=== PATIENT | female | born 1995 | race Caucasian/White ===

== ENCOUNTER 2017-11-23 21:00 | Emergency (ER) | payer OTHER ==
[2017-11-23 21:06] VITALS: BP 125/81; PULSE 96; RESP 20; TEMP 98.2
[2017-11-23] MEDS ORDERED: IBUPROFEN 600 MG STARTER PACK 4 TAB BTL PO STA (21:19)
--- NOTE | 2017-11-23 21:21 | ED ---
Lower Extremity Injury HPI - General Chief Complaint: Extremity Injury, Lower Stated Complaint: Foot injury Time Seen by Provider: 11/23/17 21:11 Source: patient, RN notes reviewed, old records reviewed Mode of arrival: wheelchair Limitations: no limitations - History of Present Illness Initial Comments: 22-year-old female presents return today with right foot pain. Patient reports he was roughhousing with her fianc and sprained her foot and ankle. She also complains of some pain shooting up to her knee. Patient reports she's had some pain with range of motion. This occurred at 5:00 tonight. Patient has been able to bear weight and walk on it. Patient has had no previous surgeries the foot or ankle. Patient denies any recent fever, chills, shortness of breath, chest pain, back pain, abdominal pain, nausea vomiting, numbness or tingling, dysuria or hematuria, constipation or diarrhea, headaches or visual changes, or any other current symptoms - Related Data Previous Rx's Medication Instructions Recorded RX: Ibuprofen 600 mg PO TID #20 tablet 11/23/17 Allergies Allergy/AdvReac Type Severity Reaction Status Date / Time amoxicillin Allergy Rash/Hives Verified 11/23/17 21:06 Review of Systems ROS Statement: Those systems with pertinent positive or pertinent negative responses have been documented in the HPI. ROS Other: All systems not noted in ROS Statement are negative. Past Medical History Past Medical History: No Reported History History of Any Multi-Drug Resistant Organisms: None Reported Past Surgical History: Cholecystectomy Past Psychological History: Anxiety, Bipolar, Depression Smoking Status: Current every day smoker Past Alcohol Use History: Occasional Past Drug Use History: Marijuana General Exam - General Exam Comments Initial Comments: This patient's a 22-year-old female. Alert and oriented. No acute distress. General: Well appearing, well nourished, in no distress. Oriented x 3, normal mood and affect . Ambulating without difficulty. Skin: Good turgor, no rash, unusual bruising or prominent lesions Hair: Normal texture and distribution. HEENT: Head: Normocephalic, atraumatic, no visible or palpable masses, depressions, or scaring. Eyes: Visual acuity intact, conjunctiva clear, sclera non-icteric, EOM intact, PERRL. Ears: EACs clear, TMs translucent & cone of light visualized. hearing intact. Nose: No external lesions, mucosa non-inflamed, septum and turbinates normal Mouth: Mucous membranes moist, no mucosal lesions. Teeth/Gums: No obvious caries or periodontal disease. No gingival inflammation or significant resorption. Pharynx: Mucosa non-inflamed, no tonsillar hypertrophy or exudate Neck: Supple, without lesions, bruits, or adenopathy, thyroid non-enlarged and non-tender Heart: No cardiomegaly or thrills; regular rate and rhythm, no murmur or gallop Lungs: Clear to auscultation and percussion Abdomen: Bowel sounds normal, no tenderness, organomegaly, masses, or hernia Extremities: Patient has pain with range of motion of the right ankle. Chest tender over the medial malleolus. No significant swelling or deformity noted. Normal sensation and pulse less than 2 seconds. Dorsalis pedis pulse and posterior pulses are palpable. Musculoskeletal: Normal gait and station. No misalignment, asymmetry, crepitation, defects, tenderness, masses, effusions, decreased range of motion, instability, atrophy or abnormal strength or tone in the head, neck, spine, ribs , pelvis or extremities. Neurologic: CN 2-12 normal. Sensation to pain, touch, and proprioception normal. DTRs normal in upper and lower extremities. No pathologic reflexes. Psychiatric: Oriented X3, intact recent and remote memory, judgment and insight , normal mood and affect. Limitations: no limitations Course Vital Signs 11/23/17 21:04 Temperature 98.2 F Pulse Rate 96 Respiratory 20 Rate Blood Pressure 125/81 O2 Sat by Pulse 98 Oximetry Procedures - Orthopedic Splinting/Casting Injury #1 Side: right Lower Extremity Injury Location: ankle Lower Extremity Immobilizer: Air[employer], El wrap Medical Decision Making - Medical Decision Making This is 22-year-old female to the right foot and ankle pain. She reports that she rolled it [place]. Patient x-rays of the foot and tib-fib are negative for any acute process. Patient given an El wrap and instructed with rest, ice, and elevate. Discussed return parameters. Motrin Tylenol for pain. Patient understood history plan will comply. Return parameters were discussed. Disposition Clinical Impression: Right ankle sprain, Right foot sprain Disposition: HOME SELF-CARE Condition: Good Instructions: Ankle Sprain (ED) Additional Instructions: Patient advised to rest, ice, and elevate extremity. Wear the El wrap and splint. Return to emergency department if any alarming signs or symptoms occur. Prescriptions: RX: Ibuprofen 600 mg PO TID #20 tablet Is patient prescribed a controlled substance at d/c from ED?: No Referrals: Mila Samuel MD [Primary Care Provider] - 1-2 days Time of Disposition: 22:04
--- NOTE | 2017-11-23 21:59 | XR ---
EXAMINATION TYPE: XR tibia fibula RT DATE OF EXAM: 11/23/2017 COMPARISON: None HISTORY: Pain TECHNIQUE: 2 view right tibia and fibula FINDINGS: Joint spaces are preserved. No acute fractures are evident. Soft tissues are normal. IMPRESSION: 1. Normal right tibia and fibula.
--- NOTE | 2017-11-23 21:59 | XR ---
EXAMINATION TYPE: XR foot complete RT DATE OF EXAM: 11/23/2017 COMPARISON: None HISTORY: Pain TECHNIQUE: Three-view right foot FINDINGS: Joint spaces are preserved. No acute fractures are evident. Soft tissues are normal. Follow -up exams can be performed 7-10 days from acute trauma for continued pain. IMPRESSION: 1. Normal three-view right foot.
== END 2017-11-23 22:18 | disposition home or self-care (01) ==
LOC: EC 21:00
DX: S93.401A Sprain of unspecified ligament of right ankle, initial encounter (principal); S93.601A Unspecified sprain of right foot, initial encounter; F17.200 Nicotine dependence, unspecified, uncomplicated; Z88.0 Allergy status to penicillin; X50.1XXA Overexertion from prolonged static or awkward postures, initial encounter; Y92.832 Beach as the place of occurrence of the external cause
CPT/HCPCS: 99284; 29515; 73590; 73630; L4350

== ENCOUNTER 2018-03-07 09:56 | Emergency (ER) | payer OTHER ==
[2018-03-07 10:02] VITALS: TEMP 98.2
--- NOTE | 2018-03-07 10:16 | ED ---
General Adult HPI - General Chief complaint: Abdominal Pain Stated complaint: rt sided pain Source: patient Mode of arrival: ambulatory Limitations: no limitations - History of Present Illness Initial comments: Dictation was produced using [employer] dictation software. please excuse any grammatical, word or spelling errors. Chief Complaint: 22-year-old female past medical history of depression presents with right-sided abdominal pain. History of Present Illness: The 22-year-old female without significant comorbidities presents with chief complaint of right-sided abdominal pain. Patient states she woke up with this pain. She reports that her pain is episodic and sharp to the right lower quadrant right flank area. She states it arises from her right flank area and radiates down to her groin. Patient denies any mitigating or exacerbating factors. Patient denies any history of kidney stones. Patient is status post cholecystectomy. Denies any vomiting however does have some nausea. Denies any changes in bowel habits. No fevers, chills or night sweats. Patient denies any history of appendectomy. Denies any vaginal bleeding, vaginal discharge. Denies his pain of her being in the periumbilical region. The ROS documented in this emergency department record has been reviewed and confirmed by me. Those systems with pertinent positive or negative responses have been documented in the HPI. All other systems are other negative and/or noncontributory. - Related Data Home Medications Medication Instructions Recorded Confirmed Cetirizine HCl [Zyrtec] 10 mg PO DAILY 03/07/18 03/07/18 FLUoxetine HCL [PROzac] 20 mg PO HS 03/07/18 03/07/18 Omeprazole [PriLOSEC] 20 mg PO DAILY 03/07/18 03/07/18 Sertraline HCl [Zoloft] 25 mg PO DAILY 03/07/18 03/07/18 Previous Rx's Medication Instructions Recorded Sulfamethox-Tmp 800-160Mg [Bactrim 1 tab PO Q12HR 5 Days #10 tab 03/07/18 DS 800-160 mg] Allergies Allergy/AdvReac Type Severity Reaction Status Date / Time amoxicillin Allergy Rash/Hives Verified 03/07/18 10:38 Penicillins Allergy Rash/Hives Verified 03/07/18 10:38 Review of Systems ROS Statement: Those systems with pertinent positive or pertinent negative responses have been documented in the HPI. ROS Other: All systems not noted in ROS Statement are negative. Past Medical History Past Medical History: No Reported History History of Any Multi-Drug Resistant Organisms: None Reported Past Surgical History: Cholecystectomy Past Psychological History: Anxiety, Bipolar, Depression Smoking Status: Current every day smoker Past Alcohol Use History: Occasional Past Drug Use History: Marijuana General Exam - General Exam Comments Initial Comments: PHYSICAL EXAM: General Impression: Alert and oriented x3, not in acute distress HEENT: Normocephalic atraumatic, extra-ocular movements intact, pupils equal and reactive to light bilaterally, mucous membranes moist. Cardiovascular: Heart regular rate and rhythm, S1&S2 audible, no murmurs, rubs or gallops Chest: Lungs clear to auscultation bilaterally, no rhonchi, no wheeze, no rales Abdomen: Bowel sounds present, abdomen soft, mild tenderness to palpation in the right lower quadrant., non-distended, no organomegaly Musculoskeletal: Pulses present and equal in all extremities, no peripheral edema Motor: Power 5/5 bilaterally, no focal deficits noted Neurological: CN II-XII grossly intact, no focal motor or sensory deficits noted Skin: Intact with no visualized rashes Psych: Normal affect and mood Limitations: no limitations Course Vital Signs 03/07/18 10:00 Temperature 98.2 F Pulse Rate 102 H Respiratory 20 Rate Blood Pressure 135/83 O2 Sat by Pulse 100 Oximetry Medical Decision Making - Medical Decision Making ED course: 82-year-old female with no CVA past medical history presents with chief complaint of right flank pain, right lower quadrant abdominal pain. Patient does not have any rebound tenderness. She is mildly tender to the right lower quadrant area. Vital signs upon arrival shows heart rate of 102, worse vital signs within normal limits.Lab return evaluation obtained. CBC, metabolic panel is unremarkable. Urinalysis shows findings to suggest urinary tract infection. The stone is also did differential however my opinion less likely. Patient given prescription for antibiotics. Told that she should follow-up with her primary care doctor. She is also given referral to urologist. Patient told to return to the emergency department with worsening pain or persistent symptoms. At that point patient should undergo workup for infected nephrolithiasis. Patient is understandable and agreeable to plan. Patient is well-appearing upon reevaluation. - Lab Data Result diagrams: 03/07/18 11:15 03/07/18 11:15 Lab Results 03/07/18 03/07/18 03/07/18 Range/Units 11:15 11:15 11:15 WBC 6.6 (3.8-10.6) k/uL RBC 4.38 (3.80-5.40) m/uL Hgb 13.5 (11.4-16.0) gm/dL Hct 40.2 (34.0-46.0) % MCV 92.0 (80.0-100.0) fL MCH 30.8 (25.0-35.0) pg MCHC 33.5 (31.0-37.0) g/dL RDW 13.1 (11.5-15.5) % Plt Count 263 (150-450) k/uL Neutrophils % 66 % Lymphocytes % 26 % Monocytes % 5 % Eosinophils % 2 % Basophils % 0 % Neutrophils # 4.3 (1.3-7.7) k/uL Lymphocytes # 1.7 (1.0-4.8) k/uL Monocytes # 0.3 (0-1.0) k/uL Eosinophils # 0.1 (0-0.7) k/uL Basophils # 0.0 (0-0.2) k/uL Sodium 140 (137-145) mmol/L Potassium 4.4 (3.5-5.1) mmol/L Chloride 108 H (98-107) mmol/L Carbon Dioxide 23 (22-30) mmol/L Anion Gap 9 mmol/L BUN 17 (7-17) mg/dL Creatinine 0.63 (0.52-1.04) mg/dL Est GFR (CKD-EPI)AfAm >90 (>60 ml/min/1.73 sqM) Est GFR (CKD-EPI)NonAf >90 (>60 ml/min/1.73 sqM) Glucose 87 (74-99) mg/dL Calcium 9.2 (8.4-10.2) mg/dL Total Bilirubin 0.5 (0.2-1.3) mg/dL AST 28 (14-36) U/L ALT 48 (9-52) U/L Alkaline Phosphatase 57 (38-126) U/L Total Protein 7.0 (6.3-8.2) g/dL Albumin 3.9 (3.5-5.0) g/dL Lipase 110 (23-300) U/L Urine Color Urine Appearance (Clear) Urine pH (5.0-8.0) Ur Specific [place] (1.001-1.035) Urine Protein (Negative) Urine Glucose (UA) (Negative) Urine Ketones (Negative) Urine Blood (Negative) Urine Nitrite (Negative) Urine Bilirubin (Negative) Urine Urobilinogen (<2.0) mg/dL Ur Leukocyte Esterase (Negative) Urine RBC (0-5) /hpf Urine WBC (0-5) /hpf Ur Squamous Epith Cells (0-4) /hpf Urine Bacteria (None) /hpf Urine Mucus (None) /hpf Urine HCG, Qual Not Detected (Not Detectd) 03/07/18 Range/Units 11:15 WBC (3.8-10.6) k/uL RBC (3.80-5.40) m/uL Hgb (11.4-16.0) gm/dL Hct (34.0-46.0) % MCV (80.0-100.0) fL MCH (25.0-35.0) pg MCHC (31.0-37.0) g/dL RDW (11.5-15.5) % Plt Count (150-450) k/uL Neutrophils % % Lymphocytes % % Monocytes % % Eosinophils % % Basophils % % Neutrophils # (1.3-7.7) k/uL Lymphocytes # (1.0-4.8) k/uL Monocytes # (0-1.0) k/uL Eosinophils # (0-0.7) k/uL Basophils # (0-0.2) k/uL Sodium (137-145) mmol/L Potassium (3.5-5.1) mmol/L Chloride (98-107) mmol/L Carbon Dioxide (22-30) mmol/L Anion Gap mmol/L BUN (7-17) mg/dL Creatinine (0.52-1.04) mg/dL Est GFR (CKD-EPI)AfAm (>60 ml/min/1.73 sqM) Est GFR (CKD-EPI)NonAf (>60 ml/min/1.73 sqM) Glucose (74-99) mg/dL Calcium (8.4-10.2) mg/dL Total Bilirubin (0.2-1.3) mg/dL AST (14-36) U/L ALT (9-52) U/L Alkaline Phosphatase (38-126) U/L Total Protein (6.3-8.2) g/dL Albumin (3.5-5.0) g/dL Lipase (23-300) U/L Urine Color Yellow Urine Appearance Cloudy H (Clear) Urine pH 6.5 (5.0-8.0) Ur Specific [place] 1.014 (1.001-1.035) Urine Protein Negative (Negative) Urine Glucose (UA) Negative (Negative) Urine Ketones Negative (Negative) Urine Blood Moderate H (Negative) Urine Nitrite Positive H (Negative) Urine Bilirubin Negative (Negative) Urine Urobilinogen <2.0 (<2.0) mg/dL Ur Leukocyte Esterase Moderate H (Negative) Urine RBC 99 H (0-5) /hpf Urine WBC 10 H (0-5) /hpf Ur Squamous Epith Cells 12 H (0-4) /hpf Urine Bacteria Occasional H (None) /hpf Urine Mucus Rare H (None) /hpf Urine HCG, Qual (Not Detectd) Disposition Clinical Impression: UTI (urinary tract infection) Disposition: HOME SELF-CARE Condition: Good Instructions: Urinary Tract Infection in Women (ED) Prescriptions: Sulfamethox-Tmp 800-160Mg [Bactrim DS 800-160 mg] 1 tab PO Q12HR 5 Days #10 tab Is patient prescribed a controlled substance at d/c from ED?: No Referrals: Mila Samuel MD [Primary Care Provider] - 1-2 days Justino Good MD [STAFF PHYSICIAN] - 1-2 days Time of Disposition: 12:34
[2018-03-07 11:33] LABS: Basophils % (A) 0 %; Eosinophils # (A) 0.1 k/uL (0-0.7); Eosinophils % (A) 2 %; HCT 40.2 % (34.0-46.0); HGB 13.5 gm/dL (11.4-16.0); Lymphocytes # (A) 1.7 k/uL (1.0-4.8); Lymphocytes % (A) 26 %; MCH 30.8 pg (25.0-35.0); MCHC 33.5 g/dL (31.0-37.0); Mean Platelet Volume 7.9; Monocytes # (A) 0.3 k/uL (0-1.0); Monocytes % (A) 5 %; Neutrophils # (A) 4.3 k/uL (1.3-7.7); Neutrophils % (A) 66 %; Platelet Count 263 k/uL (150-450); RBC 4.38 m/uL (3.80-5.40); RDW 13.1 % (11.5-15.5); WBC 6.6 k/uL (3.8-10.6)
[2018-03-07 11:42] LABS: ALT 48 U/L (9-52); AST 28 U/L (14-36); Albumin 3.9 g/dL (3.5-5.0); Alkaline Phosphatase 57 U/L (38-126); Anion Gap 9 mmol/L; Blood Urea Nitrogen 17 mg/dL (7-17); Calcium 9.2 mg/dL (8.4-10.2); Carbon Dioxide 23 mmol/L (22-30); Chloride 108 mmol/L (98-107); Glucose 87 mg/dL (74-99); Lipase 110 U/L (23-300); Potassium 4.4 mmol/L (3.5-5.1); Sodium 140 mmol/L (137-145); Total Bilirubin 0.5 mg/dL (0.2-1.3)
[2018-03-07 12:16] LABS: Appearance,Urine Cloudy (Clear); Bacteria,Urine Occasional /hpf; Bilirubin,Urine Negative (Negative); Blood,Urine Moderate (Negative); Color,Urine Yellow; Glucose,Urine (UA) Negative (Negative); Ketones,Urine Negative (Negative); Leukocyte Esterase,Urine Moderate (Negative); Mucus,Urine Rare /hpf; Nitrite,Urine Positive (Negative); PH, Urine 6.5 (5.0-8.0); Protein,Urine Negative (Negative); RBC,Urine 99 /hpf (0-5); Specific Gravity,Urine 1.014 (1.001-1.035); Squamous Epithelial Cell,Urine 12 /hpf (0-4); Urobilinogen,Urine <2.0 mg/dL (<2.0); WBC,Urine 10 /hpf (0-5)
[2018-03-07 13:28] VITALS: BP 115/77; PULSE 75; RESP 18
== END 2018-03-07 13:29 | disposition home or self-care (01) ==
LOC: EC 09:56
DX: N39.0 Urinary tract infection, site not specified (principal); R10.31 Right lower quadrant pain; F31.9 Bipolar disorder, unspecified; F41.9 Anxiety disorder, unspecified; F17.200 Nicotine dependence, unspecified, uncomplicated; Z79.899 Other long term (current) drug therapy; Z88.0 Allergy status to penicillin; Z90.49 Acquired absence of other specified parts of digestive tract
CPT/HCPCS: 36415; 80053; 81001; 81025; 83690; 85025; 99284

== ENCOUNTER 2019-12-16 11:20 | Emergency (ER) | payer OTHER ==
[2019-12-16 11:33] VITALS: BP 134/88; PULSE 85; RESP 18; TEMP 98
--- NOTE | 2019-12-16 11:52 | ED ---
Recheck HPI - General Chief Complaint: Recheck/Abnormal Lab/Rx Stated Complaint: needs work note Time Seen by Provider: 12/16/19 11:34 Source: patient, RN notes reviewed Mode of arrival: ambulatory Limitations: no limitations - History of Present Illness Initial Comments: 24-year-old female presents emergency Department requesting work no. Patient states she brought her daughter in 3 days ago was diagnosed with swimmer's itch. Patient missed work and told her work why and they are Requesting her to have a work note stating that she is clear to return to work. Patient denies any symptoms. Patient denies any complaints. Patient states SYMPTOMS - Related Data Home Medications Medication Instructions Recorded Confirmed Cetirizine HCl [Zyrtec] 10 mg PO DAILY 03/07/18 03/07/18 FLUoxetine HCL [PROzac] 20 mg PO HS 03/07/18 03/07/18 Omeprazole [PriLOSEC] 20 mg PO DAILY 03/07/18 03/07/18 Sertraline HCl [Zoloft] 25 mg PO DAILY 03/07/18 03/07/18 Previous Rx's Medication Instructions Recorded Sulfamethox-Tmp 800-160Mg [Bactrim 1 tab PO Q12HR 5 Days #10 tab 03/07/18 DS 800-160 mg] Allergies Allergy/AdvReac Type Severity Reaction Status Date / Time amoxicillin Allergy Rash/Hives Verified 03/07/18 10:38 Penicillins Allergy Rash/Hives Verified 03/07/18 10:38 Review of Systems ROS Statement: Those systems with pertinent positive or pertinent negative responses have been documented in the HPI. ROS Other: All systems not noted in ROS Statement are negative. Past Medical History Past Medical History: No Reported History History of Any Multi-Drug Resistant Organisms: None Reported Past Surgical History: Cholecystectomy Past Psychological History: Anxiety, Bipolar, Depression Smoking Status: Current every day smoker Past Alcohol Use History: Occasional Past Drug Use History: Marijuana General Exam Limitations: no limitations General appearance: alert, in no apparent distress Head exam: Present: atraumatic, normocephalic, normal inspection Eye exam: Present: normal appearance, PERRL, EOMI. Absent: scleral icterus, conjunctival injection, periorbital swelling ENT exam: Present: normal exam, normal oropharynx, mucous membranes moist Neck exam: Present: normal inspection, full ROM. Absent: tenderness, meningismus, lymphadenopathy Respiratory exam: Present: normal lung sounds bilaterally. Absent: respiratory distress, wheezes, rales, rhonchi, stridor Cardiovascular Exam: Present: regular rate, normal rhythm, normal heart sounds. Absent: systolic murmur, diastolic murmur, rubs, gallop, clicks Skin exam: Present: warm, dry, intact, normal color. Absent: rash Course Vital Signs 12/16/19 11:27 Temperature 98.0 F Pulse Rate 85 Respiratory 18 Rate Blood Pressure 134/88 O2 Sat by Pulse 97 Oximetry Medical Decision Making - Medical Decision Making Patient has no specific complaints asymptomatic. Patient will be given work no return parameters were discussed. Disposition Clinical Impression: Regular check-up Disposition: HOME SELF-CARE Condition: Stable Additional Instructions: Please return to the Emergency Department if symptoms worsen or any other con cerns. Is patient prescribed a controlled substance at d/c from ED?: No Referrals: Mila Samuel MD [Primary Care Provider] - 1-2 days Time of Disposition: 11:52
== END 2019-12-16 11:56 | disposition home or self-care (01) ==
LOC: EC 11:20
DX: Z00.00 Encounter for general adult medical examination without abnormal findings (principal); F17.200 Nicotine dependence, unspecified, uncomplicated; F41.9 Anxiety disorder, unspecified; F31.9 Bipolar disorder, unspecified; Z79.899 Other long term (current) drug therapy; Z90.49 Acquired absence of other specified parts of digestive tract; Z88.0 Allergy status to penicillin; Z87.2 Personal history of diseases of the skin and subcutaneous tissue
CPT/HCPCS: 99283

== ENCOUNTER 2020-01-03 23:12 | Emergency (ER) | payer OTHER ==
[2020-01-03] MEDS ORDERED: ACETAMINOPHEN TAB 500 MG TAB PO STA (23:29)
[2020-01-03] MEDS ORDERED: SODIUM CHLORIDE 0.9% 1,000 ML IV SCH (23:30)
--- NOTE | 2020-01-03 23:41 | ED ---
Fever HPI - General Chief Complaint: Fever Stated Complaint: Fever, chills Time Seen by Provider: 01/03/20 23:29 Source: patient Mode of arrival: ambulatory - History of Present Illness Initial Comments: Dee Dee is a relatively healthy 24-year-old female presents the ER today for evaluation of fever and not feeling well. Patient reports that her symptoms started 3-4 days ago with ear pain followed by a nonproductive cough runny stuffy nose. Shortness of breath or chest pain. She reports that since that time she's developed some abdominal pain more prominent on the left than the right, no lower urinary tract symptoms. No change in bowel or bladder habits. She states that she's had a fever throughout the day today. Asians does report recent socializing and travel within the state and states that she has not been wearing a mask. - Related Data Home Medications Medication Instructions Recorded Confirmed Cetirizine HCl [Zyrtec] 10 mg PO DAILY 03/07/18 03/07/18 FLUoxetine HCL [PROzac] 20 mg PO HS 03/07/18 03/07/18 Omeprazole [PriLOSEC] 20 mg PO DAILY 03/07/18 03/07/18 Sertraline HCl [Zoloft] 25 mg PO DAILY 03/07/18 03/07/18 Previous Rx's Medication Instructions Recorded Sulfamethox-Tmp 800-160Mg [Bactrim 1 tab PO Q12HR 5 Days #10 tab 03/07/18 DS 800-160 mg] Cephalexin [Keflex] 500 mg PO Q6HR 3 Days #12 cap 01/04/20 Allergies Allergy/AdvReac Type Severity Reaction Status Date / Time amoxicillin Allergy Rash/Hives Verified 01/03/20 23:27 Penicillins Allergy Rash/Hives Verified 01/03/20 23:27 Review of Systems ROS Statement: Those systems with pertinent positive or pertinent negative responses have been documented in the HPI. ROS Other: All systems not noted in ROS Statement are negative. Past Medical History Past Medical History: No Reported History History of Any Multi-Drug Resistant Organisms: None Reported Past Surgical History: Cholecystectomy Past Psychological History: Anxiety, Bipolar, Depression Smoking Status: Current every day smoker Past Alcohol Use History: Occasional Past Drug Use History: Marijuana General Exam - General Exam Comments Initial Comments: Physical Exam GENERAL: Ill appearing, febrile, tachycardic HENT: Normocephalic, Atraumatic. TM occluded by wax bilaterally EYES: PERRL, EOMI PULMONARY: Unlabored respirations. CARDIOVASCULAR: Tachycardic, regular ABDOMEN: Soft and nontender with normal bowel sounds. SKIN: Skin is clear with no lesions or rashes and otherwise unremarkable. : Deferred NEUROLOGIC: Patient is alert and oriented x3. Moving all extremities spontaneously MUSCULOSKELETAL: Normal extremities with adequate strength and full range of motion. No lower extremity swelling or edema. No calf tenderness. PSYCHIATRIC: Normal psychiatric evaluation. Course Vital Signs 01/03/20 01/03/20 01/03/20 23:21 23:35 23:50 Temperature 103 F H 102.3 F H 99.9 F H Pulse Rate 131 H 131 H 123 H Respiratory 20 18 14 Rate Blood Pressure 137/84 116/68 117/69 O2 Sat by Pulse 100 100 100 Oximetry 01/04/20 01/04/20 01/04/20 00:05 01:23 02:06 Temperature 102.0 F H 99.8 F H 99.1 F Pulse Rate 122 H 114 H 99 Respiratory 16 16 16 Rate Blood Pressure 129/82 114/64 127/72 O2 Sat by Pulse 100 98 99 Oximetry Medical Decision Making - Medical Decision Making She was seen and evaluated history is obtained from patient Patient has URI-type symptoms, fatigue, body aches, fever Septic workup was initiated There is concern for COVID 19 therefore CRP and ferritin were ordered The patient will be swabbed for COVID 19 Patient received antipyretics and IV fluids, her fever resolved her tachycardia resolved her he was noted to be 99 oxygen saturation remained in the 90s on room air, chest x-ray was clear Labs were concerning for muscle urinary tract infection patient was treated with Rocephin and will be discharged home with Keflex Patient reported feeling better after IV fluids and antipyretics. Patient is discharged home with 14 precautions for possible COVID 19 Return parameters were discussed patient was discharged home in stable condition - Lab Data Result diagrams: 01/03/20 23:52 01/03/20 23:52 Lab Results 01/03/20 01/03/20 01/03/20 Range/Units 23:52 23:52 23:52 WBC 11.7 H (3.8-10.6) k/uL RBC 5.13 (3.80-5.40) m/uL Hgb 15.3 (11.4-16.0) gm/dL Hct 47.7 H (34.0-46.0) % MCV 92.9 (80.0-100.0) fL MCH 29.9 (25.0-35.0) pg MCHC 32.1 (31.0-37.0) g/dL RDW 12.4 (11.5-15.5) % Plt Count 234 (150-450) k/uL Neutrophils % 93 % Lymphocytes % 5 % Monocytes % 2 % Eosinophils % 0 % Basophils % 0 % Neutrophils # 10.9 H (1.3-7.7) k/uL Lymphocytes # 0.5 L (1.0-4.8) k/uL Monocytes # 0.2 (0-1.0) k/uL Eosinophils # 0.0 (0-0.7) k/uL Basophils # 0.0 (0-0.2) k/uL PT 9.3 (9.0-12.0) sec INR 0.9 (<1.2) APTT 22.3 (22.0-30.0) sec Sodium 138 (137-145) mmol/L Potassium 4.3 (3.5-5.1) mmol/L Chloride 104 (98-107) mmol/L Carbon Dioxide 23 (22-30) mmol/L Anion Gap 11 mmol/L BUN 13 (7-17) mg/dL Creatinine 0.79 (0.52-1.04) mg/dL Est GFR (CKD-EPI)AfAm >90 (>60 ml/min/1.73 sqM) Est GFR (CKD-EPI)NonAf >90 (>60 ml/min/1.73 sqM) Glucose 126 H (74-99) mg/dL Plasma Lactic Acid Chris (0.7-2.0) mmol/L Calcium 9.3 (8.4-10.2) mg/dL Total Bilirubin 1.0 (0.2-1.3) mg/dL AST 57 H (14-36) U/L ALT 33 (4-34) U/L Alkaline Phosphatase 70 (38-126) U/L C-Reactive Protein 16.8 H (<10.0) mg/L Total Protein 7.9 (6.3-8.2) g/dL Albumin 4.7 (3.5-5.0) g/dL Urine Color Urine Appearance (Clear) Urine pH (5.0-8.0) Ur Specific Niles (1.001-1.035) Urine Protein (Negative) Urine Glucose (UA) (Negative) Urine Ketones (Negative) Urine Blood (Negative) Urine Nitrite (Negative) Urine Bilirubin (Negative) Urine Urobilinogen (<2.0) mg/dL Ur Leukocyte Esterase (Negative) Urine RBC (0-5) /hpf Urine WBC (0-5) /hpf Ur Squamous Epith Cells (0-4) /hpf Urine Bacteria (None) /hpf Urine Mucus (None) /hpf Urine HCG, Qual (Not Detectd) 01/03/20 01/04/20 01/04/20 Range/Units 23:52 01:30 01:30 WBC (3.8-10.6) k/uL RBC (3.80-5.40) m/uL Hgb (11.4-16.0) gm/dL Hct (34.0-46.0) % MCV (80.0-100.0) fL MCH (25.0-35.0) pg MCHC (31.0-37.0) g/dL RDW (11.5-15.5) % Plt Count (150-450) k/uL Neutrophils % % Lymphocytes % % Monocytes % % Eosinophils % % Basophils % % Neutrophils # (1.3-7.7) k/uL Lymphocytes # (1.0-4.8) k/uL Monocytes # (0-1.0) k/uL Eosinophils # (0-0.7) k/uL Basophils # (0-0.2) k/uL PT (9.0-12.0) sec INR (<1.2) APTT (22.0-30.0) sec Sodium (137-145) mmol/L Potassium (3.5-5.1) mmol/L Chloride (98-107) mmol/L Carbon Dioxide (22-30) mmol/L Anion Gap mmol/L BUN (7-17) mg/dL Creatinine (0.52-1.04) mg/dL Est GFR (CKD-EPI)AfAm (>60 ml/min/1.73 sqM) Est GFR (CKD-EPI)NonAf (>60 ml/min/1.73 sqM) Glucose (74-99) mg/dL Plasma Lactic Acid Chris 2.5 H* (0.7-2.0) mmol/L Calcium (8.4-10.2) mg/dL Total Bilirubin (0.2-1.3) mg/dL AST (14-36) U/L ALT (4-34) U/L Alkaline Phosphatase (38-126) U/L C-Reactive Protein (<10.0) mg/L Total Protein (6.3-8.2) g/dL Albumin (3.5-5.0) g/dL Urine Color Light Yellow Urine Appearance Clear (Clear) Urine pH 6.5 (5.0-8.0) Ur Specific Niles 1.006 (1.001-1.035) Urine Protein Negative (Negative) Urine Glucose (UA) Negative (Negative) Urine Ketones Negative (Negative) Urine Blood Negative (Negative) Urine Nitrite Positive H (Negative) Urine Bilirubin Negative (Negative) Urine Urobilinogen <2.0 (<2.0) mg/dL Ur Leukocyte Esterase Small H (Negative) Urine RBC 1 (0-5) /hpf Urine WBC 14 H (0-5) /hpf Ur Squamous Epith Cells 1 (0-4) /hpf Urine Bacteria Moderate H (None) /hpf Urine Mucus Rare H (None) /hpf Urine HCG, Qual Not Detected (Not Detectd) Disposition Clinical Impression: UTI (urinary tract infection) Disposition: HOME SELF-CARE Condition: Stable Additional Instructions: As we discussed it does appear to have a very early urinary tract infection however her labs are also concerning for possible COVID 19. You were swabbed for COVID 19 today, this test should result in 3-5 days, until that time he need to act as though you are COVID 19 positive, quarantine in your home she will have to go out wear a mask and frequently wash her hands Turned the ER for any worsening condition he cannot keep her fever under control he feel short of breath or any new or concerning symptoms Prescriptions: Cephalexin [Keflex] 500 mg PO Q6HR 3 Days #12 cap Is patient prescribed a controlled substance at d/c from ED?: No Referrals: Mila Samuel MD [Primary Care Provider] - 1-2 days
[2020-01-03] MEDS: SODIUM CHLORIDE 0.9% 500 ML 500 ML IV SCH (23:46)
[2020-01-04 00:18] LABS: Basophils % (A) 0 %; Eosinophils % (A) 0 %; HCT 47.7 % (34.0-46.0); HGB 15.3 gm/dL (11.4-16.0); Lymphocytes # (A) 0.5 k/uL (1.0-4.8); Lymphocytes % (A) 5 %; MCH 29.9 pg (25.0-35.0); MCHC 32.1 g/dL (31.0-37.0); MCV 92.9 fL (80.0-100.0); Mean Platelet Volume 8.4; Monocytes # (A) 0.2 k/uL (0-1.0); Monocytes % (A) 2 %; Neutrophils # (A) 10.9 k/uL (1.3-7.7); Neutrophils % (A) 93 %; Platelet Count 234 k/uL (150-450); RBC 5.13 m/uL (3.80-5.40); RDW 12.4 % (11.5-15.5); WBC 11.7 k/uL (3.8-10.6)
[2020-01-04 00:23] LABS: INR 0.9 (<1.2); Partial Thromboplastin Time 22.3 sec (22.0-30.0); Prothrombin Time 9.3 sec (9.0-12.0)
[2020-01-04 00:25] VITALS: RESP 16
[2020-01-04] MEDS ORDERED: IBUPROFEN 600 MG TAB PO STA (00:40)
[2020-01-04 00:47] LABS: ALT 33 U/L (4-34); African American GFR (CKD) >90 (>60 ml/min/1.73 sqM); Albumin 4.7 g/dL (3.5-5.0); Anion Gap 11 mmol/L; Blood Urea Nitrogen 13 mg/dL (7-17); C Reactive Protein 16.8 mg/L (<10.0); Calcium 9.3 mg/dL (8.4-10.2); Carbon Dioxide 23 mmol/L (22-30); Chloride 104 mmol/L (98-107); Glucose 126 mg/dL (74-99); Non-African American GFR(CKD) >90 (>60 ml/min/1.73 sqM); Sodium 138 mmol/L (137-145); Total Protein 7.9 g/dL (6.3-8.2)
[2020-01-04 00:57] LABS: AST 57 U/L (14-36); Alkaline Phosphatase 70 U/L (38-126); Potassium 4.3 mmol/L (3.5-5.1)
--- NOTE | 2020-01-04 01:27 | XR ---
EXAMINATION TYPE: XR chest 1V DATE OF EXAM: 01/04/2020 COMPARISON: NONE HISTORY: Fever TECHNIQUE: Single view FINDINGS: Heart size is normal. There is no heart failure. There is no definite pleural effusion. Exa m is limited by patient's size. Bony thorax appears intact IMPRESSION: No active cardiopulmonary disease. Limited exam.
[2020-01-04 01:38] LABS: Appearance,Urine Clear (Clear); Bacteria,Urine Moderate /hpf; Bilirubin,Urine Negative (Negative); Blood,Urine Negative (Negative); Color,Urine Light Yellow; Glucose,Urine (UA) Negative (Negative); Ketones,Urine Negative (Negative); Leukocyte Esterase,Urine Small (Negative); Mucus,Urine Rare /hpf; Nitrite,Urine Positive (Negative); PH, Urine 6.5 (5.0-8.0); Protein,Urine Negative (Negative); RBC,Urine 1 /hpf (0-5); Specific Gravity,Urine 1.006 (1.001-1.035); Squamous Epithelial Cell,Urine 1 /hpf (0-4); Urobilinogen,Urine <2.0 mg/dL (<2.0); WBC,Urine 14 /hpf (0-5)
[2020-01-04] MEDS ORDERED: cefTRIAXone IN SWFI 1,000 MG/10 ML SYRINGE IVP STA (01:43)
[2020-01-04] MEDS ORDERED: CEPHALEXIN 500MG STARTER PACK 4 CAP BTL PO STA (02:08)
[2020-01-04 02:09] VITALS: BP 127/72; PULSE 99; TEMP 99.1
[2020-01-04 10:06] LABS: Ferritin 112.1 ng/mL (10.0-291.0)
== END 2020-01-04 02:25 | disposition home or self-care (01) ==
LOC: EC 23:12
DX: N39.0 Urinary tract infection, site not specified (principal); R53.83 Other fatigue; F41.9 Anxiety disorder, unspecified; F31.9 Bipolar disorder, unspecified; F17.200 Nicotine dependence, unspecified, uncomplicated; Z79.899 Other long term (current) drug therapy; Z88.0 Allergy status to penicillin; Z90.49 Acquired absence of other specified parts of digestive tract; Z20.828 Contact with and (suspected) exposure to other viral communicable diseases
CPT/HCPCS: 36415 ×2; 93005; 80053; 82728; 83605; 85025; 85610; 85730; 86140; 81001; 81025; 87040; 87086; 71045; 99283; 96374; 96361 ×2; U0003; J0696

== ENCOUNTER 2020-03-27 21:34 | Emergency (ER) | payer BC, OTHER ==
[2020-03-27 22:31] LABS: Basophils # (A) 0.1 k/uL (0-0.2); Basophils % (A) 1 %; Eosinophils # (A) 0.2 k/uL (0-0.7); Eosinophils % (A) 2 %; HCT 41.3 % (34.0-46.0); HGB 14.2 gm/dL (11.4-16.0); Lymphocytes # (A) 2.2 k/uL (1.0-4.8); Lymphocytes % (A) 23 %; MCH 32.2 pg (25.0-35.0); MCHC 34.4 g/dL (31.0-37.0); MCV 93.8 fL (80.0-100.0); Monocytes # (A) 0.3 k/uL (0-1.0); Monocytes % (A) 3 %; Neutrophils # (A) 6.8 k/uL (1.3-7.7); Neutrophils % (A) 71 %; Platelet Count 262 k/uL (150-450); RBC 4.41 m/uL (3.80-5.40); RDW 12.3 % (11.5-15.5); WBC 9.7 k/uL (3.8-10.6)
[2020-03-27 22:34] LABS: Appearance,Urine Clear (Clear); Bacteria,Urine Rare /hpf; Bilirubin,Urine Negative (Negative); Blood,Urine Negative (Negative); Color,Urine Yellow; Glucose,Urine (UA) Negative (Negative); Ketones,Urine 1+ (Negative); Leukocyte Esterase,Urine Small (Negative); Mucus,Urine Rare /hpf; Nitrite,Urine Negative (Negative); Protein,Urine Negative (Negative); RBC,Urine <1 /hpf (0-5); Specific Gravity,Urine 1.012 (1.001-1.035); Squamous Epithelial Cell,Urine 2 /hpf (0-4); Urobilinogen,Urine <2.0 mg/dL (<2.0); WBC,Urine 7 /hpf (0-5)
[2020-03-27 22:42] LABS: ALT 58 U/L (4-34); AST 64 U/L (14-36); African American GFR (CKD) >90 (>60 ml/min/1.73 sqM); Albumin 4.3 g/dL (3.5-5.0); Alkaline Phosphatase 51 U/L (38-126); Anion Gap 7 mmol/L; Blood Urea Nitrogen 12 mg/dL (7-17); Calcium 9.7 mg/dL (8.4-10.2); Carbon Dioxide 24 mmol/L (22-30); Chloride 105 mmol/L (98-107); Glucose 87 mg/dL (74-99); Lipase 89 U/L (23-300); Non-African American GFR(CKD) >90 (>60 ml/min/1.73 sqM); Potassium 4.1 mmol/L (3.5-5.1); Sodium 136 mmol/L (137-145); Total Bilirubin 0.9 mg/dL (0.2-1.3); Total Protein 7.5 g/dL (6.3-8.2)
--- NOTE | 2020-03-27 23:37 | US ---
EXAMINATION TYPE: Transabdominal DATE OF EXAM: 03/27/2020 11:23 PM COMPARISON: NONE CLINICAL HISTORY: abdominal pain. Pelvic pain x 1 day EXAM PERFORMED: Transabdominal (TA) EXAM MEASUREMENTS: GESTATIONAL AGE / DATING Physician Established: Not established yet Dates by LMP: Patient unsure Dates by First Scan: This is 1st scan Dates by Current Scan for: (7 weeks/1 days) EDC: 11/12/2020 MATERNAL ANATOMY Uterus: 9.6 x 5.0 x 6.7cm, anteverted Right Ovary: 3.5 x 2.1 x 2.5cm Left Ovary: 2.2 x 0.8 x 1.7cm Post CDS / Adnexa: wnl Presence of free fluid: no Presence of corpus luteal cyst: right ovary: 1.9 x 1.6 x 2.0cm Presence of subchorionic bleed: no GESTATION / SURVEY CRL: 1.0cm (7 weeks/1 days) Yolk Sac (normal less than 6mm): 3.7mm Heart Rate: 138 bpm Rhythm: Normal IUP: Viable IUP Viable single IUP IMPRESSION: The ultrasound gestational age is 7 weeks and 1 day. The GALINA is 11/12/2020. No complicating process se en.
[2020-03-27 23:54] LABS: HCG,Quantitative Serum 77728.7 mIU/mL
[2020-03-27 23:59] VITALS: BP 113/75; PULSE 86; RESP 16; TEMP 97.9
[2020-03-28] MEDS ORDERED: CEPHALEXIN 500 MG CAP PO STA (00:06)
--- NOTE | 2020-03-28 00:07 | ED ---
General Adult HPI - General Chief complaint: Abdominal Pain Stated complaint: Abd Pain/NVD (9 weeks prg) Time Seen by Provider: 03/27/20 21:53 Source: patient, RN notes reviewed, old records reviewed Mode of arrival: ambulatory Limitations: no limitations - History of Present Illness Initial comments: 24 year old female patient to ED for very mild lower abdominal discomfort. Patient is a who is approximately 9 weeks . She reports it feels li ke some general gas pain. She had some nausea, one episode of emesis last night. She also reports some mild diarrhea. She denies any vaginal bleeding. Denies any other complaints. Systemic: Pt denies fatigue, fever/chills, rash. Pt denies weakness, night sweats, weight loss. Neuro: Pt denies headache, visual disturbances, syncope or pre-syncope. HEENT: Pt denies ocular discharge or irritation, otalgia, rhinorrhea, pharyngitis or notable lymphadenopathy. Cardiopulmonary: Pt denies chest pain, SOB, heart palpitations, dyspnea on exertion. Abdominal/GI: Pt denies abdominal pain, n/v/d. : Pt denies dysuria, burning w/ urination, frequency/urgency. Denies new onset urinary or bowel incontinence. MSK: Pt denies myalgia, loss of strength or function in extremities. Neuro: Pt denies new onset weakness, paresthesias. - Related Data Home Medications Medication Instructions Recorded Confirmed Cetirizine HCl [Zyrtec] 10 mg PO DAILY 03/07/18 03/27/20 Hfl-Ortr-Ysssd Acid 1 cap PO DAILY 03/27/20 03/27/20 [-U Capsule (formulary)] Previous Rx's Medication Instructions Recorded Cephalexin [Keflex] 500 mg PO Q12HR 5 Days #10 cap 03/28/20 Allergies Allergy/AdvReac Type Severity Reaction Status Date / Time amoxicillin Allergy Rash/Hives Verified 03/27/20 22:44 Penicillins Allergy Rash/Hives Verified 03/27/20 22:44 Review of Systems ROS Statement: Those systems with pertinent positive or pertinent negative responses have been documented in the HPI. ROS Other: All systems not noted in ROS Statement are negative. Past Medical History Past Medical History: No Reported History History of Any Multi-Drug Resistant Organisms: None Reported Past Surgical History: Cholecystectomy Past Psychological History: Anxiety, Bipolar, Depression Smoking Status: Current every day smoker Past Alcohol Use History: Occasional Past Drug Use History: Marijuana General Exam - General Exam Comments Initial Comments: Constitutional: NAD, AOX3, Pt has pleasant affect. HEENT: NC/AT, trachea midline, neck supple, no lymphadenopathy. External ears appear normal, without discharge. Mucous membranes moist. Eyes PERRLA, EOM intact. There is no scleral icterus. No pallor noted. Cardiopulmonary: RRR, no murmurs, rubs or gallops, no JVD noted. Lungs CTAB in anterior and posterior nichols. No peripheral edema. Abdominal exam: Abdomen soft and non-distended. Abdomen non-tender to palpation in all 4 quadrants. Bowel sounds active in LLQ. No hepatosplenomegaly. No ecchymosis Neuro: CN II-XII grossly intact. No nuchal rigidity. No raccon eyes, no roper sign, no hemotympanum. No cervical spinal tenderness. MSK: Full active ROM in upper and lower extremities, 5/5 stregnth. Limitations: no limitations Course Vital Signs 03/27/20 03/27/20 21:36 23:57 Temperature 98.8 F 97.9 F Pulse Rate 85 86 Respiratory 18 16 Rate Blood Pressure 141/81 113/75 O2 Sat by Pulse 99 100 Oximetry Medical Decision Making - Medical Decision Making 24-year-old female patient approximately 9 weeks gestation per last menstrual period to ED for some mild lower abdominal discomfort ongoing since about midnight last night. Physical exam displayed a nontender abdomen. Laboratory investigations are obtained mild asymptomatic bacturia is noted. HCG quant is appropriate. US displayed no complicating process. Patient is taking vitamins. Patient is in no acute distress, appears well. She will be discharged with keflex, and outpatient follow up. Case discussed with Dr. Lowry. - Lab Data Result diagrams: 03/27/20 22:03 03/27/20 22:03 Lab Results 03/27/20 03/27/20 03/27/20 Range/Units 22:03 22:03 22:03 WBC 9.7 (3.8-10.6) k/uL RBC 4.41 (3.80-5.40) m/uL Hgb 14.2 (11.4-16.0) gm/dL Hct 41.3 (34.0-46.0) % MCV 93.8 (80.0-100.0) fL MCH 32.2 (25.0-35.0) pg MCHC 34.4 (31.0-37.0) g/dL RDW 12.3 (11.5-15.5) % Plt Count 262 (150-450) k/uL MPV 8.0 Neutrophils % 71 % Lymphocytes % 23 % Monocytes % 3 % Eosinophils % 2 % Basophils % 1 % Neutrophils # 6.8 (1.3-7.7) k/uL Lymphocytes # 2.2 (1.0-4.8) k/uL Monocytes # 0.3 (0-1.0) k/uL Eosinophils # 0.2 (0-0.7) k/uL Basophils # 0.1 (0-0.2) k/uL Sodium 136 L (137-145) mmol/L Potassium 4.1 (3.5-5.1) mmol/L Chloride 105 (98-107) mmol/L Carbon Dioxide 24 (22-30) mmol/L Anion Gap 7 mmol/L BUN 12 (7-17) mg/dL Creatinine 0.77 (0.52-1.04) mg/dL Est GFR (CKD-EPI)AfAm >90 (>60 ml/min/1.73 sqM) Est GFR (CKD-EPI)NonAf >90 (>60 ml/min/1.73 sqM) Glucose 87 (74-99) mg/dL Calcium 9.7 (8.4-10.2) mg/dL Total Bilirubin 0.9 (0.2-1.3) mg/dL AST 64 H (14-36) U/L ALT 58 H (4-34) U/L Alkaline Phosphatase 51 (38-126) U/L Total Protein 7.5 (6.3-8.2) g/dL Albumin 4.3 (3.5-5.0) g/dL Lipase 89 (23-300) U/L HCG, Quant 64230.7 mIU/mL Urine Color Yellow Urine Appearance Clear (Clear) Urine pH 6.0 (5.0-8.0) Ur Specific Josephine 1.012 (1.001-1.035) Urine Protein Negative (Negative) Urine Glucose (UA) Negative (Negative) Urine Ketones 1+ H (Negative) Urine Blood Negative (Negative) Urine Nitrite Negative (Negative) Urine Bilirubin Negative (Negative) Urine Urobilinogen <2.0 (<2.0) mg/dL Ur Leukocyte Esterase Small H (Negative) Urine RBC <1 (0-5) /hpf Urine WBC 7 H (0-5) /hpf Ur Squamous Epith Cells 2 (0-4) /hpf Urine Bacteria Rare H (None) /hpf Urine Mucus Rare H (None) /hpf Disposition Clinical Impression: , Nausea, Asymptomatic bacteriuria, Nausea, vomiting and diarrhea Disposition: HOME SELF-CARE Condition: Stable Instructions (If sedation given, give patient instructions): (ED), A cute Nausea and Vomiting (ED) Additional Instructions: Follow up with PCP and paper final inspector tomorrow. Take antibiotics as directed. Return to ED with any worsening symptoms. Prescriptions: Cephalexin [Keflex] 500 mg PO Q12HR 5 Days #10 cap Is patient prescribed a controlled substance at d/c from ED?: No Referrals: Loren Medina DO [Primary Care Provider] - 1-2 days
== END 2020-03-28 00:20 | disposition home or self-care (01) ==
LOC: EC 21:34
DX: O21.9 Vomiting of pregnancy, unspecified (principal); O26.891 Other specified pregnancy related conditions, first trimester; R82.71 Bacteriuria; R19.7 Diarrhea, unspecified; R10.30 Lower abdominal pain, unspecified; O99.331 Smoking (tobacco) complicating pregnancy, first trimester; F17.200 Nicotine dependence, unspecified, uncomplicated; Z90.49 Acquired absence of other specified parts of digestive tract; Z88.0 Allergy status to penicillin; Z3A.09 9 weeks gestation of pregnancy
CPT/HCPCS: 36415; 76801; 80053; 81001; 83690; 84702; 85025; 99284

== ENCOUNTER 2020-06-18 20:39 | Emergency (ER) | payer BC, OTHER ==
[2020-06-18 20:44] VITALS: RESP 16
[2020-06-18] MEDS ORDERED: diphenhydrAMINE 50 MG/ML 1 ML VIAL IVP STA (21:15)
[2020-06-18] MEDS ORDERED: SODIUM CHLORIDE 0.9% 1,000 ML IV STA (21:15)
[2020-06-18] MEDS ORDERED: ACETAMINOPHEN TAB 325 MG TAB PO STA (21:15)
[2020-06-18] MEDS ORDERED: ONDANSETRON 4 MG/2 ML VIAL IVP STA (21:15)
--- NOTE | 2020-06-18 21:44 | ED ---
General Adult HPI - General Chief complaint: Headache Stated complaint: Headache Time Seen by Provider: 06/18/20 20:48 Source: patient, RN notes reviewed Mode of arrival: ambulatory Limitations: no limitations - History of Present Illness Initial comments: Patient is a [age] female that is 19 weeks that presents to emergency department complaining of headache. She notes that the headache is a lot about a week and noise makes it worse. She states that she gets headaches once, but this one is been lingering. She denied any abdominal pain or any [employer] complications. She states the pain was an 8 out of 10 when she came in for triage but has decreased to a 6-7 out of 10. She was informed to not give any contacts or NSAIDs due to status. She denied any chest pain shortness of breath nausea vomiting diarrhea constipation fever fatigue chills weakness numbness tingling. - Related Data Home Medications Medication Instructions Recorded Confirmed Cetirizine HCl [Zyrtec] 10 mg PO DAILY 03/07/18 03/27/20 Tru-Ecnx-Pqahr Acid 1 cap PO DAILY 03/27/20 03/27/20 [-U Capsule (formulary)] Previous Rx's Medication Instructions Recorded Cephalexin [Keflex] 500 mg PO Q12HR 5 Days #10 cap 03/28/20 Allergies Allergy/AdvReac Type Severity Reaction Status Date / Time amoxicillin Allergy Rash/Hives Verified 06/18/20 20:43 Penicillins Allergy Rash/Hives Verified 06/18/20 20:43 Review of Systems ROS Statement: Those systems with pertinent positive or pertinent negative responses have been documented in the HPI. ROS Other: All systems not noted in ROS Statement are negative. Past Medical History Past Medical History: No Reported History History of Any Multi-Drug Resistant Organisms: None Reported Past Surgical History: Cholecystectomy Past Psychological History: Anxiety, Bipolar, Depression Smoking Status: Former smoker Past Alcohol Use History: Occasional Past Drug Use History: Marijuana General Exam Limitations: no limitations General appearance: alert, in no apparent distress Head exam: Present: atraumatic, normocephalic, normal inspection Eye exam: Present: normal appearance, PERRL, EOMI. Absent: scleral icterus, conjunctival injection, periorbital swelling ENT exam: Present: normal exam, mucous membranes moist Neck exam: Present: normal inspection. Absent: tenderness, meningismus, lymphadenopathy Respiratory exam: Present: normal lung sounds bilaterally. Absent: respiratory distress, wheezes, rales, rhonchi, stridor Cardiovascular Exam: Present: regular rate, normal rhythm, normal heart sounds. Absent: systolic murmur, diastolic murmur, rubs, gallop, clicks GI/Abdominal exam: Present: soft, normal bowel sounds. Absent: distended, tenderness, guarding, rebound, rigid Extremities exam: Present: normal inspection, full ROM, normal capillary refill. Absent: tenderness, pedal edema, joint swelling, calf tenderness Back exam: Present: normal inspection Neurological exam: Present: alert, oriented X3, CN II-XII intact Psychiatric exam: Present: normal affect, normal mood Skin exam: Present: warm, dry, intact, normal color. Absent: rash Course Vital Signs 06/18/20 20:40 Temperature 98.3 F Pulse Rate 63 Respiratory 16 Rate Blood Pressure 118/66 O2 Sat by Pulse 100 Oximetry Medical Decision Making - Medical Decision Making 24 female complaining of headache, she is 19 weeks . 1 L normal saline, 650 mg of Tylenol, Zofran ordered. Case discussed with Dr. Hart, decided patient discharged home with conservative management. Disposition Clinical Impression: Migraine headache Disposition: HOME SELF-CARE Condition: Stable Instructions (If sedation given, give patient instructions): Acute Headache (ED) Additional Instructions: Please return to the Emergency Department if symptoms worsen or any other concerns. Follow-up primary care in 2-4 days. Follow-up with LAST MODEL [employer]MENT SUPERVISOR in 24 days. Continue to take [id number] pain medication at home as needed for conserv ative management. Increased fluid intake. Is patient prescribed a controlled substance at d/c from ED?: No Referrals: Loren Medina DO [Primary Care Provider] - 1-2 days Time of Disposition: 22:08
[2020-06-18 23:03] VITALS: BP 108/62; PULSE 80; TEMP 98.7
== END 2020-06-18 23:00 | disposition home or self-care (01) ==
LOC: EC 20:39
DX: O99.352 Diseases of the nervous system complicating pregnancy, second trimester (principal); G43.909 Migraine, unspecified, not intractable, without status migrainosus; O99.342 Other mental disorders complicating pregnancy, second trimester; F32.9 Major depressive disorder, single episode, unspecified; Z3A.19 19 weeks gestation of pregnancy; Z87.891 Personal history of nicotine dependence
CPT/HCPCS: 99283; 96374; 96375; 96361; J1200; J2405

== ENCOUNTER → 2020-09-07 | Outpatient (CLI) | payer BC, OTHER ==
[2020-09-07 22:27] LABS: T4, Free (Free Thyroxine) 1.1 ng/dL (0.80-1.80)
== END | disposition home or self-care (01) ==
LOC: LABWHC1 10:40
PROVIDERS: ATTEND Nurse Practitioner Family
DX: G43.909 Migraine, unspecified, not intractable, without status migrainosus (principal); R51.9 Headache, unspecified
CPT/HCPCS: 36415; 84439; 84443; 84481

== ENCOUNTER 2020-10-05 16:40 | Outpatient (CLI) | payer BC, OTHER ==
[2020-10-05] MEDS ORDERED: BETAMET ACET-BETAMETH SOD PHOS 6 MG/ML MDV IM SCH (17:15)
[2020-10-05 18:15] VITALS: BP 137/83; PULSE 91; RESP 16; TEMP 96.4
--- NOTE | 2020-10-05 18:19 | P.MSEPDOC ---
Presenting Problems - Arrival Data Date of Arrival on Unit: 10/05/20 Time of Arrival on Unit: 16:40 Mode of Transport: Ambulatory - Complaint OB-Reason for Admission/Chief Complaint: NST, Celestone Injection Medical History - Information : 2 Para: 1 Term: 1 : 0 Abortions: Spontaneous or Elective: 0 Number of Living Children: 1 - Gestational Age Gestational Age by GALINA (wks/days): 34 Weeks and 4 Days - History Complications: Smoker, Hx. 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 Vital Signs - Temperature Temperature: 96.4 F Temperature Source: Temporal Artery Scan - Pulse Right Brachial Pulse Rate: 91 Pulse Assessment Method: Automatic Cuff - Respirations Respiratory Rate: 16 Oxygen Delivery Method: Room Air O2 Sat by Pulse Oximetry: 99 - Blood Pressure Right Arm Blood Pressure: 137/83 Blood Pressure Mean: 101 Blood Pressure Source: Automatic Cuff Medical Screen Scoring - Assessment - Baby A Baseline FHR: 110 Heart Rate - NICHD Category: Category I (Normal) NST: Reactive Physician Notification - Physician Notified Physician Notified Date: 10/05/20 Physician Notified Time: 16:55 Physician: Darryl Burns - Notification Comment Comment: NST and Celestone, discharge if reactive NST Maternal Triage Index - Maternal Triage Index Presenting for scheduled procedure w/no complaint: Yes - Scheduled/Requesting Priority 5 Scheduled/Requesting Priority 5: Yes Criteria Met for Priority 5: script for Celestone shot Disposition - Disposition OB Disposition: Triage, Discharge to home, Written follow up instructions rev iewed Discharge Date: 10/05/20 Discharge Time: 17:35 I agree with the RN Medical Screening Exam: Yes Case reviewed; plan agreed upon as documented in EMR&OBIX.: Yes Diagnosis: OTH DISEASES AND CONDITIONS COMPLICATING (Patient presents for Celestone treatment per Dr. Escobar and maternal- medicine. Patient was given Celestone and heart tones are reactive. Patient instructed to return 24 hours for repeat injection follow up Dr. Escobar and MFM as previously instructed.)
== END 2020-10-05 17:35 | disposition home or self-care (01) ==
LOC: FBPOP 16:40
PROVIDERS: ATTEND Obstetrics & Gynecology
DX: O99.893 Other specified diseases and conditions complicating puerperium (principal); O99.333 Smoking (tobacco) complicating pregnancy, third trimester; F17.200 Nicotine dependence, unspecified, uncomplicated; Z3A.34 34 weeks gestation of pregnancy; Z88.0 Allergy status to penicillin; Z88.1 Allergy status to other antibiotic agents
CPT/HCPCS: 59025; 96372; J0702

== ENCOUNTER 2020-10-06 17:22 | Outpatient (CLI) | payer BC, OTHER ==
[2020-10-06 18:45] LABS: Appearance,Urine Clear (Clear); Bacteria,Urine Occasional /hpf; Bilirubin,Urine Negative (Negative); Blood,Urine Negative (Negative); Color,Urine Yellow; Glucose,Urine (UA) Negative (Negative); Ketones,Urine Trace (Negative); Leukocyte Esterase,Urine Small (Negative); Mucus,Urine Rare /hpf; Nitrite,Urine Negative (Negative); Protein,Urine 1+ (Negative); RBC,Urine <1 /hpf (0-5); Specific Gravity,Urine 1.028 (1.001-1.035); Squamous Epithelial Cell,Urine 4 /hpf (0-4); Urobilinogen,Urine <2.0 mg/dL (<2.0); WBC,Urine 6 /hpf (0-5)
[2020-10-06] MEDS ORDERED: BETAMET ACET-BETAMETH SOD PHOS 6 MG/ML MDV IM SCH (18:45)
[2020-10-06 18:50] LABS: Creatinine,Urine Random 126.7 mg/dL; Protein/Creatinine Ratio,Urine 0.592
[2020-10-06 19:24] LABS: Basophils % (A) 0 %; Eosinophils % (A) 0 %; HGB 12.6 gm/dL (11.4-16.0); Lymphocytes # (A) 1.9 k/uL (1.0-4.8); Lymphocytes % (A) 15 %; MCH 32.2 pg (25.0-35.0); MCHC 34.1 g/dL (31.0-37.0); MCV 94.5 fL (80.0-100.0); Mean Platelet Volume 9.5; Monocytes # (A) 0.6 k/uL (0-1.0); Monocytes % (A) 5 %; Neutrophils # (A) 10.1 k/uL (1.3-7.7); Neutrophils % (A) 80 %; Platelet Count 226 k/uL (150-450); RBC 3.91 m/uL (3.80-5.40); RDW 12.9 % (11.5-15.5); WBC 12.6 k/uL (3.8-10.6)
[2020-10-06 19:35] LABS: ALT 24 U/L (4-34); AST 33 U/L (14-36); African American GFR (CKD) >90 (>60 ml/min/1.73 sqM); Blood Urea Nitrogen 17 mg/dL (7-17); LDH 406 U/L (313-618); Non-African American GFR(CKD) >90 (>60 ml/min/1.73 sqM); Uric Acid 6.7 mg/dL (3.7-7.4)
[2020-10-06 20:33] VITALS: BP 136/74; PULSE 100; RESP 16; TEMP 98.5
--- NOTE | 2020-10-07 01:07 | P.MSEPDOC ---
Presenting Problems - Arrival Data Date of Arrival on Unit: 10/06/20 Time of Arrival on Unit: 17:38 Mode of Transport: Ambulatory - Complaint OB-Reason for Admission/Chief Complaint: Other Comment: pt arrived for second dose of celestone and also states for a PIH workup per dr. mendieta. pt states that he was to fax orders over Medical History - Information : 2 Para: 1 Term: 1 : 0 Abortions: Spontaneous or Elective: 0 Number of Living Children: 1 - Gestational Age Gestational Age by GALINA (wks/days): 34 Weeks and 5 Days - History Complications: Smoker Comment: Patient uses THC- last done today. Patient has a "blocked carotid" which causes headaches and she sees a neurologist for. Review of Systems - Review of Systems Constitutional: No problems Breast: No problems ENT: No problems Cardiovascular: No problems Respiratory: No problems Gastrointestinal: No problems Genitourinary: No problems Musculoskeletal: No problems Neurological: No problems Skin: No problems Vital Signs - Temperature Temperature: 98.5 F Temperature Source: Oral - Pulse Pulse Oximetery Pulse Rate: 100 Pulse Assessment Method: Automatic Cuff - Respirations Respiratory Rate: 16 Oxygen Delivery Method: Room Air O2 Sat by Pulse Oximetry: 98 - Blood Pressure Sitting Blood Pressure: 136/74 Blood Pressure Mean: 94 Blood Pressure Source: Automatic Cuff Medical Screen Scoring - Assessment - Baby A Baseline FHR: 115 Heart Rate - NICHD Category: Category I (Normal) NST: Reactive Physician Notification - Physician Notified Physician Notified Date: 10/06/20 Physician Notified Time: 19:43 Physician: An Haile Order Received: Yes - Notification Comment Comment: Dr. Haile called given report on maternal and status, labs, orders given. to discharge patient home with instructions patient to follow up with Dr. Mendieta on. Saturday. Maternal Triage Index - Maternal Triage Index Presenting for scheduled procedure w/no complaint: Yes - Scheduled/Requesting Priority 5 Scheduled/Requesting Priority 5: Yes Criteria Met for Priority 5: Patient presents for Scheduled celestone dose and orders for PIH workup Disposition - Disposition OB Disposition: Discharge to home, Written follow up instructions reviewed Discharge Date: 10/06/20 Discharge Time: 19:51 I agree with the RN Medical Screening Exam: Yes Case reviewed; plan agreed upon as documented in EMR&OBIX.: Yes Diagnosis: HEADACHE, UNSPECIFIED (Patient arrived with complaints of headache that has been ongoing and that has not changed. She does see a neurologist for this. She is convinced that she needs a preeclampsia workup even though her blood pressures are normal. Preeclampsia workup was completed and she did show 1+ protein with all other labs normal. She is scheduled to follow-up with Dr. Mendieta on Saturday and it appears that she is going to be delivered early per maternal- medicine.) Additional Diagnoses: Carotid artery occlusion
== END 2020-10-06 19:51 | disposition home or self-care (01) ==
LOC: FBPOP 17:22
PROVIDERS: ATTEND Obstetrics & Gynecology
DX: O99.419 Diseases of the circulatory system complicating pregnancy, unspecified trimester (principal); I65.29 Occlusion and stenosis of unspecified carotid artery; Z3A.34 34 weeks gestation of pregnancy; Z88.0 Allergy status to penicillin; Z88.1 Allergy status to other antibiotic agents
CPT/HCPCS: 59025; 99215; 96372; 82570; 84156; 82565; 83615; 84450; 84460; 84520; 84550; 85025; 81001; J0702

== ENCOUNTER 2020-10-24 11:35 | Inpatient (IN) | payer BC, OTHER ==
[2020-10-24] MEDS ORDERED: CARBOPROST TROMETHAMINE 250 MCG/ML 1 ML AMP IM PRN ×2 (12:34→12:35)
[2020-10-24] MEDS ORDERED: OXYTOCIN 10 UNIT/ML 1 ML VIAL IM PRN ×2 (12:34→12:35)
[2020-10-24] MEDS ORDERED: METHYLERGONOVINE 0.2 MG/ML 1 ML AMP IM PRN (12:34)
[2020-10-24] MEDS ORDERED: LIDOCAINE 0.5% (PF) 5 MG/ML (50 ML SDV) SQ PRN ×2 (12:34→12:35)
[2020-10-24] MEDS ORDERED: TERBUTALINE 1 MG/ML VIAL SQ PRN ×2 (12:34→12:35)
[2020-10-24] MEDS ORDERED: LACTATED RINGERS 1,000 ML IV SCH ×2 (12:45)
[2020-10-24] MEDS ORDERED: OXYTOCIN 30 UNITS/500 ML NS 30 UNIT in SALINE 1 500ML.BAG IV SCH (12:45)
[2020-10-24 12:50] LABS: Basophils % (A) 0 %; Eosinophils # (A) 0.1 k/uL (0-0.7); Eosinophils % (A) 1 %; HGB 14.9 gm/dL (11.4-16.0); Lymphocytes # (A) 2.2 k/uL (1.0-4.8); Lymphocytes % (A) 17 %; MCH 32.9 pg (25.0-35.0); MCHC 34.5 g/dL (31.0-37.0); MCV 95.2 fL (80.0-100.0); Mean Platelet Volume 9.2; Monocytes # (A) 0.4 k/uL (0-1.0); Monocytes % (A) 3 %; Neutrophils # (A) 9.8 k/uL (1.3-7.7); Neutrophils % (A) 78 %; Platelet Count 252 k/uL (150-450); RBC 4.52 m/uL (3.80-5.40); RDW 13.4 % (11.5-15.5); WBC 12.5 k/uL (3.8-10.6)
[2020-10-24] MEDS ORDERED: CLINDAMYCIN 900 MG in DEXTROSE 5% IN WATER 50 ML IVPB SCH ×2 (13:00)
[2020-10-24] MEDS ORDERED: diphenhydrAMINE 25 MG CAP PO PRN (13:27)
[2020-10-24] MEDS ORDERED: BENZOCAINE/MENTHOL SPRAY 1 GM/SPRAY AEROSOL TOPICAL PRN (13:27)
[2020-10-24] MEDS ORDERED: MEASLES-MUMPS-RUBELLA VACC/PF 12,500 UNIT/0.5 ML VIAL SQ ONE (13:27)
[2020-10-24] MEDS ORDERED: LANOLIN CREAM 5 GM TUBE TOPICAL PRN (13:27)
[2020-10-24] MEDS ORDERED: diphenhydrAMINE 50 MG/ML 1 ML VIAL IVP PRN ×2 (13:27)
[2020-10-24] MEDS ORDERED: SIMETHICONE 80 MG CHEWABLE PO PRN (13:27)
[2020-10-24] MEDS ORDERED: diphenhydrAMINE 50 MG CAP PO PRN (13:27)
[2020-10-24] MEDS ORDERED: ZOLPIDEM 5 MG TAB PO PRN (13:27)
[2020-10-24] MEDS ORDERED: HYDROCORTISONE 2.5% RECTAL CREAM 30 GM TUBE RECTAL PRN (13:27)
--- NOTE | 2020-10-24 13:31 | P.HPOB ---
History of Present Illness H&P Date: 10/24/20 Chief Complaint: term active labor Patient is a 25-year-old G3 to P1 at 37 weeks gestation who ryes in active labor initially dilated to 6-7 cm. Her course was, complicated by migraine headaches for which she saw an urologist. The urologist diagnosed her with a complete occlusion of left carotid artery and she was evaluated and followed with maternal medicine. At approximately 32 weeks after not receiving any information from the neurology department on delivery location type I was called by the neurologist/neurosurgeon who said that she was very unsafe to deliver at our hospital due to the fact that if her blood pressure was to follow she could have a stroke and we have no neurosurgery here. She was transferred to maternal- medicine and ultimately to the [place] admission. She was seen at the [facility] at 35 weeks and after their evaluation a felt she was stable for delivery vaginally at any location she chose as they felt it was more of a congenital issue and not something acute. I have no specific paperwork outlining location of delivery but they did have paperwork centimeters of that she was safe for a vaginal delivery. Realistically, she is dilated to 6-7 cm at presentation and far too advanced for transfer we did discuss this with the family and they understand or limitations and we will plan for a vaginal delivery. She is not a candidate for epidural this time anyway so hopefully we can avoid any drops in her blood pressure during the labor process. A category 1 tracing is noted she is [place] every approximately 5-7 minutes. When I did my evaluation was dilated to 9 cm 100% effaced -2 station. The trying to get antibodies and so artificial rupture membranes has not been performed. Past Medical History Past Medical History: GERD/Reflux Additional Past Medical History / Comment(s): migraines, History of Any Multi-Drug Resistant Organisms: None Reported Past Surgical History: Cholecystectomy, Ear Surgery Past Anesthesia/Blood Transfusion Reactions: No Reported Reaction Smoking Status: Current some day smoker - Past Family History Mother Family Medical History: Cancer Medications and Allergies Home Medications Medication Instructions Recorded Confirmed Type Cetirizine HCl [Zyrtec] 10 mg PO DAILY 03/07/18 10/11/20 History Bsc-Oaee-Vslkm Acid 1 cap PO DAILY 03/27/20 10/24/20 History [-U Capsule (formulary)] Omeprazole 20 mg PO DAILY PRN 10/11/20 10/11/20 History Allergies Allergy/AdvReac Type Severity Reaction Status Date / Time amoxicillin Allergy Rash/Hives Verified 10/24/20 11:52 Penicillins Allergy Rash/Hives Verified 10/24/20 11:52 Exam Osteopathic Statement: *. No significant issues noted on an osteopathic structural exam other than those noted in the History and Physical/Consult. Vital Signs Temp Pulse Resp BP 10/24/20 12:53 98.4 F 91 16 146/89 10/24/20 12:34 98.3 F 91 18 146/89 Intake and Output 10/23/20 10/24/20 10/24/20 22:59 06:59 14:59 Other: Weight 119.295 kg - OBG Physical Exam Breast: both: normal (no masses) Abdomen: bowel sounds normal, no diffuse tenderness, no bruit present, no guarding noted, no hepatomegaly, no splenomegaly, no mass Vulva: both: normal Vagina: normal moisture, no discharge Cervix: no lesion, no discharge Uterus: normal size, normal contour Adnexa: both: normal Anus/Rectum: normal perianal skin, no rectal mass, no hemorrhoids, heme negative Results Result Diagrams: 10/24/20 06:53 Abnormal Lab Results - Last 24 Hours (Table) 10/24/20 Range/Units 06:53 WBC 12.5 H (3.8-10.6) k/uL Neutrophils # 9.8 H (1.3-7.7) k/uL
--- NOTE | 2020-10-24 13:32 | P.PROBDLV ---
Vaginal Delivery Note - . Vaginal Delivery Note: Kaitlyn progressed complete and pushing with spontaneous vaginal delivery of a viable over an intact perineum. She rapidly progressed and delivered as I walked in the room. Mouth nares were bulb suctioned immediately after delivery and the umbilical cords then clamped cut usual fashion. Nursery personnel was present and assumed care. Placenta was then delivered intact Pitocin was added to the IV. scores and weight are both pending. Both mother and baby currently appear stable following delivery. We'll continue very close care and observation to make sure that no other changes occur.
[2020-10-24] MEDS: IBUPROFEN 600 MG TAB PO SCH (14:02)
[2020-10-24 15:09] LABS: ALT 18 U/L (4-34); AST 23 U/L (14-36); African American GFR (CKD) >90 (>60 ml/min/1.73 sqM); Blood Urea Nitrogen 13 mg/dL (7-17); LDH 477 U/L (313-618); Non-African American GFR(CKD) >90 (>60 ml/min/1.73 sqM); Uric Acid 6.5 mg/dL (3.7-7.4)
[2020-10-24 15:26] LABS: Appearance,Urine Clear (Clear); Bacteria,Urine Rare /hpf; Bilirubin,Urine Negative (Negative); Blood,Urine Moderate (Negative); Color,Urine Light Yellow; Glucose,Urine (UA) Negative (Negative); Ketones,Urine Negative (Negative); Leukocyte Esterase,Urine Negative (Negative); Mucus,Urine Rare /hpf; Nitrite,Urine Negative (Negative); Protein,Urine 2+ (Negative); RBC,Urine 52 /hpf (0-5); Specific Gravity,Urine 1.011 (1.001-1.035); Urobilinogen,Urine <2.0 mg/dL (<2.0); WBC,Urine 2 /hpf (0-5)
[2020-10-24] MEDS: ACETAMINOPHEN TAB 325 MG TAB PO PRN (17:04)
[2020-10-24] MEDS ORDERED: SENNOSIDES-DOCUSATE SODIUM 1 EACH TAB PO SCH (20:00)
[2020-10-25] MEDS: ACETAMINOPHEN TAB 325 MG TAB PO PRN (02:40)
[2020-10-25 06:21] LABS: Basophils % (A) 0 %; Eosinophils # (A) 0.1 k/uL (0-0.7); Eosinophils % (A) 1 %; HCT 37.8 % (34.0-46.0); HGB 12.8 gm/dL (11.4-16.0); Lymphocytes # (A) 2.8 k/uL (1.0-4.8); Lymphocytes % (A) 19 %; MCH 32.2 pg (25.0-35.0); MCHC 33.8 g/dL (31.0-37.0); MCV 95.1 fL (80.0-100.0); Monocytes # (A) 0.4 k/uL (0-1.0); Monocytes % (A) 3 %; Neutrophils # (A) 11.3 k/uL (1.3-7.7); Neutrophils % (A) 76 %; Platelet Count 221 k/uL (150-450); RBC 3.98 m/uL (3.80-5.40); RDW 13.4 % (11.5-15.5); WBC 14.8 k/uL (3.8-10.6)
--- NOTE | 2020-10-25 08:28 | P.PNOBGVD ---
Subjective - Subjective Principal diagnosis: Post day 1 Interval history: Sarah is doing very well this morning. She is ambulating, voiding and tolerating her diet. She overall feels well. Baby is in special care nursery. No other issues or problems this morning. Plan to continue current care. It is noted yesterday she had a couple of elevated blood pressures, but due to her occluded carotid no treatment was given and blood pressures have returned to normal. Since 3 PM yesterday she's had no elevated blood pressures. Patient reports: Reports appetite normal, Reports voiding normally, Reports pain well controlled, Reports ambulating normally [place]: in NICU Objective - Latest Vital Signs Latest vital signs: Vital Signs Temp Pulse Resp BP Pulse Ox 10/25/20 00:00 98.2 F 86 16 113/69 10/24/20 20:00 98.2 F 82 16 134/84 98 10/24/20 16:00 98.4 F 100 16 131/84 97 10/24/20 15:35 98.4 F 100 16 131/84 97 10/24/20 15:03 95 16 138/65 97 10/24/20 14:35 91 16 125/70 99 10/24/20 14:20 98.4 F 84 18 150/88 98 10/24/20 14:05 84 18 140/81 10/24/20 13:49 93 20 165/113 10/24/20 13:35 90 16 138/71 10/24/20 12:53 98.4 F 91 16 146/89 10/24/20 12:34 98.3 F 91 18 146/89 Intake and Output 10/24/20 10/25/20 10/25/20 22:59 06:59 14:59 Other: # Voids 1 1 - Exam Lungs: bilateral: normal Chest: Normal S1, Normal S2 Extremities: Present: normal Abdomen: Present: normal appearance, soft Uterus: Present: normal, firm - Labs Labs: Abnormal Lab Results - Last 24 Hours (Table) 10/24/20 10/24/20 10/24/20 Range/Units 02:00 06:53 14:25 WBC 12.5 H (3.8-10.6) k/uL Neutrophils # 9.8 H (1.3-7.7) k/uL Creatinine 0.50 L (0.52-1.04) mg/dL Urine Protein 2+ H (Negative) Urine Blood Moderate H (Negative) Urine RBC 52 H (0-5) /hpf Urine Bacteria Rare H (None) /hpf Urine Mucus Rare H (None) /hpf 10/25/20 Range/Units 06:03 WBC 14.8 H (3.8-10.6) k/uL Neutrophils # 11.3 H (1.3-7.7) k/uL Creatinine (0.52-1.04) mg/dL Urine Protein (Negative) Urine Blood (Negative) Urine RBC (0-5) /hpf Urine Bacteria (None) /hpf Urine Mucus (None) /hpf
[2020-10-25] MEDS: IBUPROFEN 600 MG TAB PO SCH ×3 (08:44→15:21)
[2020-10-25 12:35] LABS: Protein/Creatinine Ratio,Urine 3.615
[2020-10-25 16:22] VITALS: BP 124/80; PULSE 105; RESP 16; TEMP 98
== END 2020-10-25 16:26 | disposition home or self-care (01) | DRG 806 ==
LOC: FBPOP 11:35 → 4FBP 12:22
PROVIDERS: ADMIT Obstetrics & Gynecology; ATTEND Obstetrics & Gynecology
PROC: 10E0XZZ Delivery of Products of Conception, External Approach (ICD-10-PCS; principal; 2020-10-24)
DX: O62.3 Precipitate labor (principal); O99.413 Diseases of the circulatory system complicating pregnancy, third trimester; Z37.0 Single live birth; O99.334 Smoking (tobacco) complicating childbirth; F17.210 Nicotine dependence, cigarettes, uncomplicated; O90.89 Other complications of the puerperium, not elsewhere classified; R03.0 Elevated blood-pressure reading, without diagnosis of hypertension; I65.29 Occlusion and stenosis of unspecified carotid artery; G43.909 Migraine, unspecified, not intractable, without status migrainosus; O99.353 Diseases of the nervous system complicating pregnancy, third trimester; K21.9 Gastro-esophageal reflux disease without esophagitis; O99.613 Diseases of the digestive system complicating pregnancy, third trimester; Z3A.37 37 weeks gestation of pregnancy
CPT/HCPCS: 59025; 81001; 82565; 82570; 83615; 84156; 84450; 84460; 84520; 84550; 85025; 86850; 86900; 86901; 88307; 90471; 90707; 99213

== ENCOUNTER 2021-07-08 00:18 | Emergency (ER) | payer BC, OTHER ==
[2021-07-08 00:27] VITALS: BP 116/60; PULSE 64; RESP 22; TEMP 99
--- NOTE | 2021-07-08 01:05 | ED ---
Head Injury HPI - General Chief complaint: Head Injury Stated complaint: Head Injury - [facility] Time Seen by Provider: 07/08/21 00:56 Source: patient, family, RN notes reviewed Mode of arrival: ambulatory Limitations: no limitations - History of Present Illness Initial comments: This is a pleasant 25-year-old female who stood up and struck her head on a rack at work. This occurred about 2 hours prior to arrival. Patient recalls entire event. He is not on blood thinners. Not lose consciousness. No vomiting. Had mild nausea and a mild headache. No neurological impairment. No numbness or tingling. No changes in vision or hearing. No difficulty with speech. No gait disturbance. no fever or chills, no changes in vision or hearing, no sore throat or difficulty with speech, no neck pain, no chest pain or shortness of breath, no abdominal pain, no nausea, no changes in urination or bowel movements, no numbness or tingling, no extremity pain, no skin rashes or lesions. MD Complaint: head injury - Related Data Home Medications Medication Instructions Recorded Confirmed Cetirizine HCl [Zyrtec] 10 mg PO DAILY 03/07/18 10/11/20 Igo-Wrdv-Etxjy Acid 1 cap PO DAILY 03/27/20 10/24/20 [-U Capsule (formulary)] Omeprazole 20 mg PO DAILY PRN 10/11/20 10/11/20 Allergies/Adverse reactions: Allergies Allergy/AdvReac Type Severity Reaction Status Date / Time amoxicillin Allergy Rash/Hives Verified 07/08/21 00:27 Penicillins Allergy Rash/Hives Verified 07/08/21 00:27 Review of Systems ROS Statement: Those systems with pertinent positive or pertinent negative responses have been documented in the HPI. ROS Other: All systems not noted in ROS Statement are negative. Past Medical History Past Medical History: GERD/Reflux Additional Past Medical History / Comment(s): migraines, History of Any Multi-Drug Resistant Organisms: None Reported Past Surgical History: Cholecystectomy, Ear Surgery Past Anesthesia/Blood Transfusion Reactions: No Reported Reaction Past Psychological History: Anxiety, Depression Smoking Status: Current every day smoker Past Alcohol Use History: None Reported Past Drug Use History: None Reported - Past Family History Mother Family Medical History: Cancer General Exam - General Exam Comments Initial Comments: Cranial nerves II through XII are intact. No gait disturbance. Patient looks well. Does not appear to be toxic. Limitations: no limitations General appearance: alert, in no apparent distress Head exam: Present: atraumatic, normocephalic, normal inspection Eye exam: Present: normal appearance, PERRL, EOMI. Absent: scleral icterus, conjunctival injection, periorbital swelling ENT exam: Present: normal exam, mucous membranes moist Neck exam: Present: normal inspection, full ROM. Absent: tenderness, meningismus, lymphadenopathy Respiratory exam: Present: normal lung sounds bilaterally. Absent: respiratory distress, wheezes, rales, rhonchi, stridor Cardiovascular Exam: Present: regular rate, normal rhythm, normal heart sounds. Absent: systolic murmur, diastolic murmur, rubs, gallop, clicks GI/Abdominal exam: Present: soft, normal bowel sounds. Absent: distended, tenderness, guarding, rebound, rigid Extremities exam: Present: normal inspection, full ROM, normal capillary refill. Absent: tenderness, pedal edema, joint swelling, calf tenderness Back exam: Present: normal inspection Neurological exam: Present: alert, oriented X3, CN II-XII intact, normal gait, other (Klajfb-ug-uppi and Romberg are normal). Absent: altered, abnormal gait, motor sensory deficit Psychiatric exam: Present: normal affect, normal mood Skin exam: Present: warm, dry, intact, normal color. Absent: rash Course Vital Signs 07/08/21 00:22 Temperature 99 F Pulse Rate 64 Respiratory 22 Rate Blood Pressure 116/60 O2 Sat by Pulse 99 Oximetry Medical Decision Making - Medical Decision Making Patient present with a head injury which appears to be rather mild. Certainly patient could have a mild concussion. Keep the patient out of work tomorrow. No indication for CT scanning via the [place] CT rule. Discussed post first cons of CT scanning. Patient deferring this test. Patient looks well has no neurological impairment. Patient given instructions for head injury. The case was discussed in detail with ED attending physician. Presentation, findings, treatment plan discussed in detail. Patient was told to return to the ER for any signs or symptoms worsen. Told to return immediately if any other problems arise. All questions answered. Treatment plan discussed. Patient in agreement Every effort has been made to ensure accuracy of this dictation. However, due to the limitations of electronic medical records and dictation devices, errors in charting still occur. - Lab Data Lab Results 07/08/21 Range/Units 00:35 Urine HCG, Qual Not Detected (Not Detectd) Disposition Clinical Impression: Closed head injury Disposition: HOME SELF-CARE Condition: Good Instructions (If sedation given, give patient instructions): Head Injury (ED) Additional Instructions: Follow-up with your regular physician as directed. Return to the ER immediately if any symptoms worsen, new symptoms arise, or any other problems develop. Make sure usual review the head injury instructions provided. Off work today. May return tomorrow. 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
== END 2021-07-08 01:14 | disposition home or self-care (01) ==
LOC: EC 00:18
DX: S09.90XA Unspecified injury of head, initial encounter (principal); K21.9 Gastro-esophageal reflux disease without esophagitis; F41.9 Anxiety disorder, unspecified; F32.A Depression, unspecified; F17.200 Nicotine dependence, unspecified, uncomplicated; Z88.0 Allergy status to penicillin; Z90.49 Acquired absence of other specified parts of digestive tract; W22.8XXA Striking against or struck by other objects, initial encounter
CPT/HCPCS: 81025; 99284

== ENCOUNTER → 2021-07-10 | Outpatient (CLI) | payer BC, OTHER ==
--- NOTE | 2021-07-10 15:35 | CT ---
EXAMINATION TYPE: CT brain wo con DATE OF EXAM: 07/10/2021 COMPARISON: None HISTORY: 25-year-old female G44.321, hit back of head, pain, no loss of consciousness. TECHNIQUE: Examination was done in axial plane without intravenous contrast. Coronal and sagittal r econstructions performed. CT DLP: 1153 mGycm Automated exposure control for dose reduction was used. FINDINGS: There is no evidence of acute intracranial hemorrhage, acute ischemic changes, mass, mass-effect, or extra-axial fluid collection. There is no effacement of cerebral sulci or basal subarachnoid cister ns. There is no hydrocephalus. There is no midline shift. Ramirez-white matter distinction is preserv ed. Leftward nasal septal deviation. Orbits and globes are intact. Paranasal sinuses and mastoid air cell s well pneumatized. No calvarial fracture. IMPRESSION: No acute intracranial abnormality seen.
== END | disposition home or self-care (01) ==
LOC: RADCTMAIN 14:58
PROVIDERS: ATTEND Emergency Medicine
DX: G44.321 Chronic post-traumatic headache, intractable (principal)
CPT/HCPCS: 70450

== ENCOUNTER → 2021-08-10 | Outpatient (CLI) | payer OTHER ==
--- NOTE | 2021-08-10 17:24 | MR ---
EXAMINATION TYPE: MR brain wo con DATE OF EXAM: 08/10/2021 COMPARISON: CT 07/10/2021 HISTORY: 25M with continued headaches since head injury at work June 2021 Standard multiplanar, multisequence MRI departmental protocol Multiplanar, multisequence sequences were acquired without contrast, including diffusion weighted rashid ging. FINDINGS: There is no mass or mass effect. No signal characteristic abnormality. There is no extra-axial fluid collection. Vasculature is negative as seen. Skeletal structures are unremarkable. The mastoid sinus air cells, middle ear cavities, and paranasal sinuses are clear. Visualized extra-calvarial structures are unremarkable. IMPRESSION: Negative examination.
== END | disposition home or self-care (01) ==
LOC: RADMRIMAIN 16:38
PROVIDERS: ATTEND Emergency Medicine
DX: S09.90XA Unspecified injury of head, initial encounter (principal); R51.9 Headache, unspecified; X58.XXXA Exposure to other specified factors, initial encounter
CPT/HCPCS: 70551

== ENCOUNTER 2021-10-05 21:37 | Emergency (ER) | payer BC, OTHER ==
[2021-10-05 22:05] VITALS: RESP 16; TEMP 97.9
--- NOTE | 2021-10-05 22:56 | XR ---
EXAMINATION TYPE: XR ankle complete RT DATE OF EXAM: 10/05/2021 COMPARISON: NONE HISTORY: Pain TECHNIQUE: 3 views FINDINGS: Ankle mortise is anatomic. I see no fracture nor dislocation. Joint spaces are normal. IMPRESSION: Negative right ankle exam. No fracture seen
--- NOTE | 2021-10-05 22:57 | XR ---
EXAMINATION TYPE: XR foot complete RT DATE OF EXAM: 10/05/2021 COMPARISON: NONE HISTORY: Pain TECHNIQUE: 3 views FINDINGS: Metatarsals are intact. I see no fracture nor dislocation. Joint spaces are normal. There a re no erosions. IMPRESSION: Negative right foot exam.
[2021-10-06] MEDS ORDERED: IBUPROFEN 600 MG STARTER PACK 4 TAB BTL PO STA (01:38)
--- NOTE | 2021-10-06 01:44 | ED ---
Lower Extremity Injury HPI - General Chief Complaint: Extremity Injury, Lower Stated Complaint: R ankle injury Time Seen by Provider: 10/06/21 01:20 Source: patient, RN notes reviewed Mode of arrival: ambulatory Limitations: no limitations - History of Present Illness Initial Comments: Patient tripped coming down her stairs about 2 weeks ago and injured her right ankle. Patient states that she has been able to ambulate. Over the past several days she started having pain to the medial aspect of the ankle. Patient denying any other injuries. No distal or proximal injuries. No distal paresthesias. No headache, no fever or chills, no changes in vision or hearing, no sore throat or difficulty with speech, no neck pain, no chest pain or shortness of breath, no abdominal pain, no nausea or vomiting, no changes in urination or bowel movements, no numbness or tingling, no skin rashes or lesions. - Related Data Home Medications Medication Instructions Recorded Confirmed Cetirizine HCl [Zyrtec] 10 mg PO DAILY 03/07/18 10/11/20 Avj-Axmm-Jvvep Acid 1 cap PO DAILY 03/27/20 10/24/20 [-U Capsule (formulary)] Omeprazole 20 mg PO DAILY PRN 10/11/20 10/11/20 Allergies Allergy/AdvReac Type Severity Reaction Status Date / Time amoxicillin Allergy Rash/Hives Verified 10/05/21 22:02 Penicillins Allergy Rash/Hives Verified 10/05/21 22:02 Review of Systems ROS Statement: Those systems with pertinent positive or pertinent negative responses have been documented in the HPI. ROS Other: All systems not noted in ROS Statement are negative. Past Medical History Past Medical History: GERD/Reflux Additional Past Medical History / Comment(s): migraines, History of Any Multi-Drug Resistant Organisms: None Reported Past Surgical History: Cholecystectomy, Ear Surgery Past Anesthesia/Blood Transfusion Reactions: No Reported Reaction Past Psychological History: Anxiety, Depression Smoking Status: Current every day smoker Past Alcohol Use History: None Reported Past Drug Use History: None Reported - Past Family History Mother Family Medical History: Cancer General Exam Limitations: no limitations General appearance: alert, in no apparent distress Head exam: Present: atraumatic, normocephalic, normal inspection Eye exam: Present: normal appearance, PERRL, EOMI. Absent: scleral icterus, conjunctival injection, periorbital swelling ENT exam: Present: normal exam, mucous membranes moist Neck exam: Present: normal inspection, full ROM. Absent: tenderness, meningismus, lymphadenopathy Respiratory exam: Present: normal lung sounds bilaterally. Absent: respiratory distress, wheezes, rales, rhonchi, stridor Cardiovascular Exam: Present: regular rate, normal rhythm, normal heart sounds. Absent: systolic murmur, diastolic murmur, rubs, gallop, clicks GI/Abdominal exam: Present: soft. Absent: distended, tenderness, guarding, rebound, rigid Extremities exam: Present: normal inspection, full ROM, tenderness (Patient has some tenderness over the deltoid ligament. No bony point tenderness. Ligaments are stable. Pedal pulses are intact at 2+ out of 4.), normal capillary refill, other (Ligaments stable). Absent: pedal edema, joint swelling, calf tenderness Back exam: Present: normal inspection Neurological exam: Present: alert, oriented X3, CN II-XII intact Psychiatric exam: Present: normal affect, normal mood Skin exam: Present: warm, dry, intact, normal color. Absent: rash Course Vital Signs 10/05/21 22:02 Temperature 97.9 F Pulse Rate 84 Respiratory 16 Rate Blood Pressure 138/66 O2 Sat by Pulse 100 Oximetry Procedures - Orthopedic Splinting/Casting Injury #1 Side: right Lower Extremity Injury Location: ankle Lower Extremity Immobilizer: stirrup splint Additional Comments: Neurovascular status intact both pre-and post-application Medical Decision Making - Medical Decision Making Patient presents with ankle sprain which is negative at over the past 2 weeks. Plain film x-rays are negative. No evidence acute pathology. I did review the films myself. Patient be placed in an air splint. Neurovascular status intact. We'll have the patient follow-up with orthopedics as she has had this pain for 2 weeks. Patient was told to return to the ER for any signs or symptoms worsen. Told to return immediately if any other problems arise. All questions answered. Treatment plan discussed. Patient in agreement Every effort has been made to ensure accuracy of this dictation. However, due to the limitations of electronic medical records and dictation devices, errors in charting still occur. Thoracic Medicine Specialist, Dr. Siu - Radiology Data Radiology results: report reviewed, image reviewed Disposition Clinical Impression: Sprain of deltoid ligament of right ankle, initial encounter Disposition: HOME SELF-CARE Condition: Good Instructions (If sedation given, give patient instructions): Ankle Sprain (ED) Additional Instructions: The ankle brace as directed. Take anti-inflammatory medication as discussed. Elevate the foot when possible. Follow-up with orthopedics. Call 8 AM for follow-up appointment. Follow-up with your regular physician as directed. Return to the ER immediately if any symptoms worsen, new symptoms arise, or any other problems develop. Is patient prescribed a controlled substance at d/c from ED?: No Referrals: Heaven Medrano DO [Doctor of Osteopathic Medicine] - 10/06/21 9:00 am Time of Disposition: 01:39
[2021-10-06 03:23] VITALS: BP 124/84; PULSE 78
== END 2021-10-06 03:24 | disposition home or self-care (01) ==
LOC: EC 21:37
DX: S93.421A Sprain of deltoid ligament of right ankle, initial encounter (principal); F17.200 Nicotine dependence, unspecified, uncomplicated; K21.9 Gastro-esophageal reflux disease without esophagitis; Z88.0 Allergy status to penicillin; Z79.899 Other long term (current) drug therapy; W18.40XA Slipping, tripping and stumbling without falling, unspecified, initial encounter
CPT/HCPCS: 29515; 99283

== ENCOUNTER 2022-09-08 19:29 | Emergency (ER) | payer BC, OTHER ==
[2022-09-08 19:39] VITALS: RESP 16; TEMP 99.1
--- NOTE | 2022-09-08 21:17 | ED ---
General Adult HPI - General Chief complaint: ENT Stated complaint: hearing loss right ear Time Seen by Provider: 09/08/22 20:16 Source: patient, RN notes reviewed Mode of arrival: ambulatory Limitations: no limitations - History of Present Illness Initial comments: 26-year-old female presents to the emergency department chief complaint of decreased hearing in her right ear 3 weeks. Patient states that she has been putting Debrox drops in her ear to soften the wax but has not been helping. She states that she occasionally does have some drainage from the right ear. She states it is nonpainful. Denies fever, chills. - Related Data Home Medications Medication Instructions Recorded Confirmed Cetirizine HCl [Zyrtec] 10 mg PO DAILY 03/07/18 10/11/20 [id number] Acid 1 cap PO DAILY 03/27/20 10/24/20 [-U Capsule (formulary)] Omeprazole 20 mg PO DAILY PRN 10/11/20 10/11/20 Allergies Allergy/AdvReac Type Severity Reaction Status Date / Time amoxicillin Allergy Rash/Hives Verified 09/08/22 19:36 Penicillins Allergy Rash/Hives Verified 09/08/22 19:36 Review of Systems ROS Statement: Those systems with pertinent positive or pertinent negative responses have been documented in the HPI. ROS Other: All systems not noted in ROS Statement are negative. Past Medical History Past Medical History: GERD/Reflux Additional Past Medical History / Comment(s): migraines, History of Any Multi-Drug Resistant Organisms: None Reported Past Surgical History: Cholecystectomy, Ear Surgery Past Anesthesia/Blood Transfusion Reactions: No Reported Reaction Past Psychological History: Anxiety, Depression Smoking Status: Former smoker Past Alcohol Use History: None Reported Past Drug Use History: Marijuana - Past Family History Mother Family Medical History: Cancer General Exam Limitations: no limitations General appearance: alert, in no apparent distress Head exam: Present: atraumatic, normocephalic, normal inspection Eye exam: Present: normal appearance, PERRL, EOMI. Absent: scleral icterus, conjunctival injection, periorbital swelling ENT exam: Present: other (Bilateral cerumen impaction, right side was irrigated with some cerumen removal successful, on reevaluation after irrigation there seems to still be some deeply impacted earwax). Absent: TM's normal bilaterally (Unable to be visualized), normal external ear exam (Cerumen impaction bilateral ears, small amount of possible blood in the right ear canal) Neck exam: Present: normal inspection. Absent: tenderness, meningismus, lymphadenopathy Respiratory exam: Present: normal lung sounds bilaterally. Absent: respiratory distress, wheezes, rales, rhonchi, stridor Cardiovascular Exam: Present: regular rate, normal rhythm, normal heart sounds. Absent: systolic murmur, diastolic murmur, rubs, gallop, clicks GI/Abdominal exam: Present: soft, normal bowel sounds. Absent: distended, tenderness, guarding, rebound, rigid Extremities exam: Present: normal inspection, full ROM, normal capillary refill. Absent: tenderness, pedal edema, joint swelling, calf tenderness Back exam: Present: normal inspection Neurological exam: Present: alert, oriented X3 Psychiatric exam: Present: normal affect, normal mood Skin exam: Present: warm, dry, intact, normal color. Absent: rash Course Vital Signs 09/08/22 19:36 Temperature 99.1 F Pulse Rate 75 Respiratory 16 Rate Blood Pressure 126/48 O2 Sat by Pulse 98 Oximetry Medical Decision Making - Medical Decision Making Was pt. sent in by a medical professional or institution ([facility] [place], [facility], urgent care, hospital, or longterm...) When possible be specific @ -No Did you speak to anyone other than the patient for history (EMS, parent, family, police, friend...)? What history was obtained from this source @ -No Did you review nursing and triage notes (agree or disagree)? Why? @ -I reviewed and agree with nursing and triage notes Were old charts reviewed (outside hosp., previous admission, EMS record, old EKG, old radiological studies, urgent care reports/EKG's, longterm records)? Report findings @ -No old charts were reviewed Differential Diagnosis (chest pain, altered mental status, abdominal pain women, abdominal pain men, vaginal bleeding, weakness, fever, dyspnea, syncope, headache, dizziness, GI bleed, back pain, seizure, CVA, palpatations, mental health, musculoskeletal)? @ -Otitis media, otitis externa, cerumen impaction, cholesteatoma, inner ear disease, this list is not all-inclusive EKG interpreted by me (3pts min.). @ -None X-rays interpreted by me (1pt min.). @ -None done CT interpreted by me (1pt min.). @ -None done U/S interpreted by me (1pt. min.). @ -None done What testing was considered but not performed or refused? (CT, X-rays, U/S, labs)? Why? @ -None What meds were considered but not given or refused? Why? @ -None Did you discuss the management of the patient with other professionals (professionals i.e. DrLeonor, PA, REEXAMINER, lab, RT, psych nurse, clinical social work therapist, value engineer, teacher, staff nuclear weapons officer, wrapper caser)? Give summary @ -No Was smoking cessation discussed for >3mins.? @ -No Was critical care preformed (if so, how long)? @ -No Were there social determinants of health that impacted care today? How? (Homelessness, low income, unemployed, alcoholism, drug addiction, transportation, low edu. Level, literacy, decrease access to med. care, [facility], rehab)? @ -No Was there de-escalation of care discussed even if they declined (Discuss DNR or withdrawal of care, Hospice)? DNR status @ -No What co-morbidities impacted this encounter? (DM, HTN, Smoking, COPD, CAD, Cancer, CVA, ARF, Chemo, Hep., AIDS, mental health diagnosis, sleep apnea, morbid obesity)? @ -None Was patient admitted / discharged? Hospital course, mention meds given and route, prescriptions, significant lab abnormalities, going to OR and other pertinent info. @ -Discharged. Patient presented to emergency department chief complaint of decreased hearing on the right side 3 weeks. Patient has cerumen impaction bilateral ears, irrigation was performed in the right ear which provided some improvement in hearing. There appear to be still some deeply impacted wax in the right ear which was unable to be removed. Instrumentation was performed and therefore antibiotic drops were administered and she was advised to use them at home for 7 days. She was advised to keep the ear clean and dry. Follow-up with ENT was provided on patient's discharge summary. Patient discharged in stable condition. Case discussed by attending, Dr. Medina. Undiagnosed new problem with uncertain prognosis? @ -No Drug Therapy requiring intensive monitoring for toxicity (Heparin, Nitro, Insulin, Cardizem)? @ -No Were any procedures done? @ -No Diagnosis/symptom? @ -Cerumen impaction Acute, or Chronic, or Acute on Chronic? @ -Acute Uncomplicated (without systemic symptoms) or Complicated (systemic symptoms)? @ -Uncomplicated Side effects of treatment? @ -No Exacerbation, Progression, or Severe Exacerbation? @ -No Poses a threat to life or bodily function? How? (Chest pain, [place], NC, pneumonia, PE, COPD, DKA, ARF, appy, cholecystitis, CVA, Diverticulitis, Homicidal, Suicidal, threat to staff... and all critical care pts) @ -No - Lab Data Lab Results 09/08/22 Range/Units 21:19 Urine HCG, Qual Not Detected (Not Detectd) Disposition Clinical Impression: Impacted cerumen Disposition: HOME SELF-CARE Condition: Stable Instructions (If sedation given, give patient instructions): Earache (ED) Additional Instructions: Instill 5 drops in the right ear twice a day for about a week. follow up with ear, nose, and throat. Please return to the emergency department for new or worsening symptoms. Is patient prescribed a controlled substance at d/c from ED?: No Referrals: None,Stated [Primary Care Provider] - 1-2 days Alex Anderson MD [STAFF PHYSICIAN] - 1-2 days Time of Disposition: 23:21
[2022-09-08] MEDS ORDERED: OFLOXACIN 0.3% OPHTH DROPS 5 ML BOTTLE RIGHT EAR ONE (23:30)
[2022-09-08 23:54] VITALS: BP 128/68; PULSE 71
== END 2022-09-08 23:47 | disposition home or self-care (01) ==
LOC: EC 19:29
DX: H61.23 Impacted cerumen, bilateral (principal); K21.9 Gastro-esophageal reflux disease without esophagitis; F12.90 Cannabis use, unspecified, uncomplicated; Z88.0 Allergy status to penicillin; Z87.891 Personal history of nicotine dependence; Z90.49 Acquired absence of other specified parts of digestive tract
CPT/HCPCS: 81025; 99283

== ENCOUNTER → 2023-01-01 | Outpatient (CLI) | payer BC, OTHER ==
--- NOTE | 2023-01-01 15:19 | CA ---
Transthoracic Echo Report Name: Dee Dee Castillo Age: 27 Gender: F : 1995 Exam Date: 01/01/2023 12:15 Exam Location: [facility] Ht (in): 62 Wt (lb): 200 Ordering Physician: Raheem Mehta MD Attending/Referring Phys: Resawyer Ngozi Clinton RDCS Procedure CPT: Indications: R55 syncope 48 HR Cardiac Hx: Technical Quality: Good Contrast 1: Total Dose (mL): Contrast 2: Total Dose (mL): MEASUREMENTS (Male / Female) Normal Values 2D ECHO LV Diastolic Diameter PLAX 3.9 cm 4.2 - 5.9 / 3.9 - 5.3 cm LV Systolic Diameter PLAX 2.7 cm IVS Diastolic Thickness 0.9 cm 0.6 - 1.0 / 0.6 - 0.9 cm LVPW Diastolic Thickness 0.9 cm 0.6 - 1.0 / 0.6 - 0.9 cm LV Relative Wall Thickness 0.5 RV Internal Dim ED PLAX 2.5 cm LV Diastolic Volume MOD 4C 62.7 cm??? LV Systolic Volume MOD 4C 24.9 cm??? LV Ejection Fraction MOD 4C 60.3 % LV Cardiac Index MOD 4C 1413.1 cm???/min???m??? LV Diastolic Length 4C 8.0 cm LV Systolic Length 4C 6.4 cm LV Diastolic Volume MOD 2C 93.3 cm??? LV Systolic Volume MOD 2C 37.3 cm??? LV Ejection Fraction MOD 2C 60.0 % LV Cardiac Index MOD 2C 2088.9 cm???/min???m??? LV Diastolic Length 2C 8.2 cm LV Systolic Length 2C 6.6 cm LA Volume 44.8 cm??? 18 - 58 / 22 - 52 cm??? M-MODE Aortic Root Diameter MM 2.7 cm DOPPLER Mitral E Point Velocity 97.7 cm/s Mitral A Point Velocity 60.0 cm/s Mitral E to A Ratio 1.6 MV Deceleration Time 250.3 ms MV E' Velocity 13.5 cm/s Mitral E to MV E' Ratio 7.3 FINDINGS Left Ventricle Left ventricular ejection fraction is estimated at 60-65 %. Left ventricular cavity size normal. Left ventricular wall thickness normal. Right Ventricle Normal right ventricular size and function. Unable to estimate the right ventricular systolic pressure. Right Atrium Normal right atrial size. Left Atrium Normal left atrial size. Mitral Valve Structurally normal mitral valve. No mitral stenosis, regurgitation or prolapse. Aortic Valve Trileaflet aortic valve. No aortic valve stenosis or regurgitation. Tricuspid Valve Structurally normal tricuspid valve. No tricuspid stenosis, regurgitation or prolapse. Pulmonic Valve Pulmonic valve not well visualized. Pericardium No pericardial effusion. Aorta Normal size aortic root and proximal ascending aorta. CONCLUSIONS Left ventricular ejection fraction 60-65% No mitral regurgitation No tricuspid regurgitation No pericardial effusion Previewed by: Dr. Damien Ocampo DO (Electronically Signed) Final Date: 01 January 2023 15:18
== END | disposition home or self-care (01) ==
LOC: RADECHMAIN 11:52
PROVIDERS: ATTEND Internal Medicine Geriatric Medicine
DX: R55 Syncope and collapse (principal)
CPT/HCPCS: 93270; 93306

== ENCOUNTER 2023-05-07 15:38 | Emergency (ER) | payer BC, OTHER ==
[2023-05-07 15:55] VITALS: RESP 18; TEMP 98.8
[2023-05-07] MEDS ORDERED: ONDANSETRON 4 MG/2 ML VIAL IVP STA (16:47)
[2023-05-07 17:24] LABS: Basophils # (A) 0.1 k/uL (0-0.2); Basophils % (A) 1 %; Eosinophils # (A) 0.6 k/uL (0-0.7); Eosinophils % (A) 8 %; HGB 15.4 gm/dL (11.4-16.0); Lymphocytes # (A) 2.5 k/uL (1.0-4.8); Lymphocytes % (A) 33 %; MCH 31.9 pg (25.0-35.0); MCHC 34.2 g/dL (31.0-37.0); MCV 93.3 fL (80.0-100.0); Mean Platelet Volume 8.7; Monocytes # (A) 0.3 k/uL (0-1.0); Monocytes % (A) 4 %; Neutrophils # (A) 3.8 k/uL (1.3-7.7); Neutrophils % (A) 52 %; Platelet Count 251 k/uL (150-450); RBC 4.82 m/uL (3.80-5.40); RDW 12.3 % (11.5-15.5); WBC 7.4 k/uL (3.8-10.6)
[2023-05-07 17:31] LABS: Appearance,Urine Clear (Clear); Bacteria,Urine Rare /hpf; Bilirubin,Urine Negative (Negative); Blood,Urine Large (Negative); Color,Urine Colorless; Glucose,Urine (UA) Negative (Negative); Ketones,Urine Negative (Negative); Leukocyte Esterase,Urine Trace (Negative); Mucus,Urine Rare /hpf; Nitrite,Urine Negative (Negative); PH, Urine 6.5 (5.0-8.0); Protein,Urine Negative (Negative); RBC,Urine 14 /hpf (0-5); Specific Gravity,Urine 1.008 (1.001-1.035); Squamous Epithelial Cell,Urine 1 /hpf (0-4); Urobilinogen,Urine <2.0 mg/dL (<2.0); WBC,Urine 7 /hpf (0-5)
[2023-05-07 17:33] LABS: ALT 58 U/L (4-34); AST 50 U/L (14-36); African American GFR (CKD) >90 (>60 ml/min/1.73 sqM); Albumin 4.6 g/dL (3.5-5.0); Alkaline Phosphatase 64 U/L (38-126); Anion Gap 10 mmol/L; Blood Urea Nitrogen 15 mg/dL (7-17); Calcium 9.6 mg/dL (8.4-10.2); Carbon Dioxide 22 mmol/L (22-30); Chloride 108 mmol/L (98-107); Glucose 92 mg/dL (74-99); Non-African American GFR(CKD) >90 (>60 ml/min/1.73 sqM); Potassium 4.3 mmol/L (3.5-5.1); Sodium 140 mmol/L (137-145); Total Bilirubin 0.9 mg/dL (0.2-1.3); Total Protein 7.9 g/dL (6.3-8.2)
[2023-05-07 17:34] LABS: INR 0.9 (<1.2); Partial Thromboplastin Time 25.1 sec (22.0-30.0); Prothrombin Time 10.2 sec (10.0-12.5)
--- NOTE | 2023-05-07 17:46 | ED ---
General Adult HPI - General Chief complaint: Vaginal Bleeding Stated complaint: Spotting,Abd Pain/4wks Time Seen by Provider: 05/07/23 16:34 Source: patient Mode of arrival: ambulatory Limitations: no limitations - History of Present Illness Initial comments: Patient is a 27-year-old female who presents emergency department complaining of spotting and currently 4 weeks based on LMP and home testing. Has not yet followed up with [facility]. Presents for further evaluation. States she has had 3-4 episodes of spotting with blood on the paper when she uses the restroom. Patient also noticed possibly to clots. Has not yet received an ultrasound. Is . Prior complicated by group B strep positive and her child who was born 2 weeks early however now healthy. No other acute complaints. No history of clotting issues. No history of anemia. Presents for further evaluation at this time. Endorses some mild lower abdominal cramping. Denies any dysuria or hematuria. Denies any vaginal discharge otherwise. - Related Data Home Medications Medication Instructions Recorded Confirmed Cetirizine HCl [Zyrtec] 10 mg PO DAILY 03/07/18 04/22/23 Omeprazole 20 mg PO DAILY 10/11/20 04/22/23 Fluticasone Nasal [place] [Flonase 2 spray EA NOSTRIL DAILY PRN 04/22/23 04/22/23 Nasal [place]] Allergies Allergy/AdvReac Type Severity Reaction Status Date / Time amoxicillin Allergy Rash/Hives Verified 05/07/23 15:47 Penicillins Allergy Rash/Hives Verified 05/07/23 15:47 adhesive tape AdvReac red bumps Verified 05/07/23 15:47 on skin Review of Systems ROS Statement: Those systems with pertinent positive or pertinent negative responses have been documented in the HPI. Review of Systems: CONST: Denies fever EYES: Denies blurry vision ENT: Denies nasal congestion C/V: Denies Chest pain RESP: Denies shortness of breath GI: Denies abdominal pain : Endorses vaginal spotting, 2 clots. SKIN: Denies rash. MSK: Denies joint pain. NEURO: Denies headache ROS Other: All systems not noted in ROS Statement are negative. Past Medical History Past Medical History: GERD/Reflux, Syncope Additional Past Medical History / Comment(s): migraines, has been passing out on & off since October, has worn heart monitor on & off, will be wearing another one when comes in Th., seasonal allergies, possible carpal tunnel, born w/torticollis, see DR Hinojosa [facility] & P History of Any Multi-Drug Resistant Organisms: None Reported Past Surgical History: Cholecystectomy, Ear Surgery Additional Past Surgical History / Comment(s): myringotomy & tubes as a child Past Anesthesia/Blood Transfusion Reactions: No Reported Reaction Past Psychological History: Anxiety, Depression Smoking Status: Former smoker, Vaper - Past Family History Mother Family Medical History: Cancer General Exam - General Exam Comments Initial Comments: General: Appears in no acute distress. HEAD: Normal with no signs of head trauma. EYES: EOMI ENT: Hearing grossly intact, normal oropharynx. RESPIRATORY: Clear breath sounds bilaterally. No wheezes, rales, or rhonchi. C/V: Regular rate and rhythm. S1 and S2 auscultated, no edema, peripheral pulses 2+ and intact throughout ABD: Abd is soft, nontender, nondistended EXT: Normal range of motion, no obvious deformity SKIN: No rashes or lesions observed on exposed skin. NEURO: Alert and oriented x 4. Limitations: no limitations Course Vital Signs 05/07/23 05/07/23 05/07/23 15:47 17:02 18:02 Temperature 98.8 F Pulse Rate 63 63 72 Respiratory 18 18 18 Rate Blood Pressure 123/65 107/94 109/65 O2 Sat by Pulse 100 99 Oximetry Medical Decision Making - Medical Decision Making Was pt. sent in by a medical professional or institution (, PA, [facility], urgent care, hospital, or retirement...) When possible be specific @ -No Did you speak to anyone other than the patient for history (EMS, parent, family, police, friend...)? What history was obtained from this source @ -No Did you review nursing and triage notes (agree or disagree)? Why? @ -I reviewed and agree with nursing and triage notes Were old charts reviewed (outside hosp., previous admission, EMS record, old EKG, old radiological studies, urgent care reports/EKG's, retirement records)? Report findings @ -No old charts were reviewed Differential Diagnosis (chest pain, altered mental status, abdominal pain women, abdominal pain men, vaginal bleeding, weakness, fever, dyspnea, syncope, headache, dizziness, GI bleed, back pain, seizure, CVA, palpatations, mental health, musculoskeletal)? @ -Bleeding in , miscarriage, threatened , vaginal spotting, UTI. This list is not all inclusive. EKG interpreted by me (3pts min.). @ -None done X-rays interpreted by me (1pt min.). @ -None done CT interpreted by me (1pt min.). @ -None done U/S interpreted by me (1pt. min.). @ -None done What testing was considered but not performed or refused? (CT, X-rays, U/S, labs)? Why? @ -None What meds were considered but not given or refused? Why? @ -I offered Tylenol for analgesia which was declined. Did you discuss the management of the patient with other professionals (professionals i.e. , PA, MERCHANDISE HANDLER, lab, RT, psych nurse, hospital social worker, lieutenant fire fighter, teacher, veterans service officer, telephonic nurse case manager)? Give summary @ -No Was smoking cessation discussed for >3mins.? @ -No Was critical care preformed (if so, how long)? @ -No Were there social determinants of health that impacted care today? How? (Homelessness, low income, unemployed, alcoholism, drug addiction, transportation, low edu. Level, literacy, decrease access to med. care, detention, rehab)? @ -No Was there de-escalation of care discussed even if they declined (Discuss DNR or withdrawal of care, Hospice)? DNR status @ -No What co-morbidities impacted this encounter? (DM, HTN, Smoking, COPD, CAD, Cancer, CVA, ARF, Chemo, Hep., AIDS, mental health diagnosis, sleep apnea, morbid obesity)? @ -None Was patient admitted / discharged? Hospital course, mention meds given and route, prescriptions, significant lab abnormalities, going to OR and other pertinent info. @ -Based on the patient's presentation and physical exam, presents complaining of vaginal spotting and bleeding in . Is approximately 4 months . Has not yet followed up with an [facility]. Presents for further evaluation at this time. Had multiple episodes of spotting on toilet paper as well as possibly 2 clots. No other complaints at this time. Presents for further evaluation at this time. Vital signs are within acceptable limits. Exam is relatively unremarkable. We will obtain abdominal laboratory studies, as well as quantitative beta-hCG. Patient's laboratory studies remarkable for beta-hCG of 41. No concern for UTI on urinalysis. Remainder of labs unremarkable. Patient is blood type AB positive and does not require RhoGAM. I did discuss with the patient the results of her workup. With this level beta-hCG, ultrasound is not a utility in this situation. Patient's diagnosis is threatened miscarriage. Recommended she follow-up with her PCP for repeat quantitative hCG testing next week. She does have an appointment with her doctor. If any worsening symptoms she should return to the emergency department. Recommended follow-up with [facility]. Discussed that she needs to trend the beta-hCG down to 0, or continue trending it upwards to obtain an ultrasound. She expressed understanding. Strict return precautions discussed. I instructed the patient to follow up with their PCP in the next 1-3 days. I explained that the patient should return to the emergency department if they experience any worsening symptoms. Strict return precautions were discussed with the patient. The patient expressed understanding of these instructions. I answered all questions that the patient had. The patient was discharged home in good condition with their prescriptions and follow up information.. Undiagnosed new problem with uncertain prognosis? @ -No Drug Therapy requiring intensive monitoring for toxicity (Heparin, Nitro, Insu sofia, Cardizem)? @ -No Were any procedures done? @ -No Diagnosis/symptom? @ -Threatened miscarriage Acute, or Chronic, or Acute on Chronic? @ -Acute Uncomplicated (without systemic symptoms) or Complicated (systemic symptoms)? @ -Complicated Side effects of treatment? @ -None Exacerbation, Progression, or Severe Exacerbation] @ -No Poses a threat to life or bodily function? @ -Unlikely - Lab Data Result diagrams: 05/07/23 17:06 05/07/23 17:06 Lab Results 05/07/23 05/07/23 05/07/23 Range/Units 17:06 17:06 17:06 WBC 7.4 (3.8-10.6) k/uL RBC 4.82 (3.80-5.40) m/uL Hgb 15.4 (11.4-16.0) gm/dL Hct 45.0 (34.0-46.0) % MCV 93.3 (80.0-100.0) fL MCH 31.9 (25.0-35.0) pg MCHC 34.2 (31.0-37.0) g/dL RDW 12.3 (11.5-15.5) % Plt Count 251 (150-450) k/uL MPV 8.7 Neutrophils % 52 % Lymphocytes % 33 % Monocytes % 4 % Eosinophils % 8 % Basophils % 1 % Neutrophils # 3.8 (1.3-7.7) k/uL Lymphocytes # 2.5 (1.0-4.8) k/uL Monocytes # 0.3 (0-1.0) k/uL Eosinophils # 0.6 (0-0.7) k/uL Basophils # 0.1 (0-0.2) k/uL PT 10.2 (10.0-12.5) sec INR 0.9 (<1.2) APTT 25.1 (22.0-30.0) sec Sodium (137-145) mmol/L Potassium (3.5-5.1) mmol/L Chloride (98-107) mmol/L Carbon Dioxide (22-30) mmol/L Anion Gap mmol/L BUN (7-17) mg/dL Creatinine (0.52-1.04) mg/dL Est GFR (CKD-EPI)AfAm (>60 ml/min/1.73 sqM) Est GFR (CKD-EPI)NonAf (>60 ml/min/1.73 sqM) Glucose (74-99) mg/dL Calcium (8.4-10.2) mg/dL Total Bilirubin (0.2-1.3) mg/dL AST (14-36) U/L ALT (4-34) U/L Alkaline Phosphatase (38-126) U/L Total Protein (6.3-8.2) g/dL Albumin (3.5-5.0) g/dL HCG, Quant mIU/mL Urine Color Colorless Urine Appearance Clear (Clear) Urine pH 6.5 (5.0-8.0) Ur Specific [place] 1.008 (1.001-1.035) Urine Protein Negative (Negative) Urine Glucose (UA) Negative (Negative) Urine Ketones Negative (Negative) Urine Blood Large H (Negative) Urine Nitrite Negative (Negative) Urine Bilirubin Negative (Negative) Urine Urobilinogen <2.0 (<2.0) mg/dL Ur Leukocyte Esterase Trace H (Negative) Urine RBC 14 H (0-5) /hpf Urine WBC 7 H (0-5) /hpf Ur Squamous Epith Cells 1 (0-4) /hpf Urine Bacteria Rare H (None) /hpf Urine Mucus Rare H (None) /hpf Blood Type Blood Type Recheck Bld Type Recheck Status Antibody Screen Spec Expiration Date 05/07/23 05/07/23 Range/Units 17:06 17:06 WBC (3.8-10.6) k/uL RBC (3.80-5.40) m/uL Hgb (11.4-16.0) gm/dL Hct (34.0-46.0) % MCV (80.0-100.0) fL MCH (25.0-35.0) pg MCHC (31.0-37.0) g/dL RDW (11.5-15.5) % Plt Count (150-450) k/uL MPV Neutrophils % % Lymphocytes % % Monocytes % % Eosinophils % % Basophils % % Neutrophils # (1.3-7.7) k/uL Lymphocytes # (1.0-4.8) k/uL Monocytes # (0-1.0) k/uL Eosinophils # (0-0.7) k/uL Basophils # (0-0.2) k/uL PT (10.0-12.5) sec INR (<1.2) APTT (22.0-30.0) sec Sodium 140 (137-145) mmol/L Potassium 4.3 (3.5-5.1) mmol/L Chloride 108 H (98-107) mmol/L Carbon Dioxide 22 (22-30) mmol/L Anion Gap 10 mmol/L BUN 15 (7-17) mg/dL Creatinine 0.61 (0.52-1.04) mg/dL Est GFR (CKD-EPI)AfAm >90 (>60 ml/min/1.73 sqM) Est GFR (CKD-EPI)NonAf >90 (>60 ml/min/1.73 sqM) Glucose 92 (74-99) mg/dL Calcium 9.6 (8.4-10.2) mg/dL Total Bilirubin 0.9 (0.2-1.3) mg/dL AST 50 H (14-36) U/L ALT 58 H (4-34) U/L Alkaline Phosphatase 64 (38-126) U/L Total Protein 7.9 (6.3-8.2) g/dL Albumin 4.6 (3.5-5.0) g/dL HCG, Quant 41.0 mIU/mL Urine Color Urine Appearance (Clear) Urine pH (5.0-8.0) Ur Specific [place] (1.001-1.035) Urine Protein (Negative) Urine Glucose (UA) (Negative) Urine Ketones (Negative) Urine Blood (Negative) Urine Nitrite (Negative) Urine Bilirubin (Negative) Urine Urobilinogen (<2.0) mg/dL Ur Leukocyte Esterase (Negative) Urine RBC (0-5) /hpf Urine WBC (0-5) /hpf Ur Squamous Epith Cells (0-4) /hpf Urine Bacteria (None) /hpf Urine Mucus (None) /hpf Blood Type AB Positive Blood Type Recheck AB Pos Bld Type Recheck Status No Antibody Screen NEGATIVE Spec Expiration Date 05/10/20232305 Disposition Clinical Impression: Threatened miscarriage in early Disposition: HOME SELF-CARE Condition: Good Instructions (If sedation given, give patient instructions): Threatened Miscarriage (ED) Is patient prescribed a controlled substance at d/c from ED?: No Referrals: Raheem Mehta MD [Primary Care Provider] - 1-2 days Time of Disposition: 18:10
[2023-05-07 18:13] VITALS: BP 109/65; PULSE 72
== END 2023-05-07 18:21 | disposition home or self-care (01) ==
LOC: EC 15:38
DX: O20.0 Threatened abortion (principal); O99.611 Diseases of the digestive system complicating pregnancy, first trimester; K21.9 Gastro-esophageal reflux disease without esophagitis; O99.331 Smoking (tobacco) complicating pregnancy, first trimester; F17.290 Nicotine dependence, other tobacco product, uncomplicated; Z3A.01 Less than 8 weeks gestation of pregnancy; Z88.0 Allergy status to penicillin; Z91.09 Other allergy status, other than to drugs and biological substances; Z79.899 Other long term (current) drug therapy; Z90.49 Acquired absence of other specified parts of digestive tract
CPT/HCPCS: 36415; 86900; 86901; 80053; 85025; 85610; 85730; 86850; 81001; 84702; 99284; 96374; J2405

== ENCOUNTER 2024-02-20 10:58 | Observation (INO) | payer BC, OTHER ==
--- NOTE | 2024-02-20 11:31 | ED ---
Abdominal Pain HPI - General Chief Complaint: Abdominal Pain Stated Complaint: abd pain/+ preg test/NV/dizzy Time Seen by Provider: 02/20/24 11:15 Source: patient, RN notes reviewed Mode of arrival: ambulatory Limitations: no limitations - History of Present Illness Initial Comments: This is a [id number] presenting to the emergency department chief complaint of left lower abdominal/pelvic pain with nausea and vomiting that occurred approximately 2 hours before arrival. Pain radiates into the back. She denies hematuria, dysuria, increased urinary frequency or urgency. Denies vaginal discharge or vaginal bleeding. Last menstrual cycle was 01/17/2024. Patient states that she took an at home test approximately 2 days ago that was positive. Denies fevers, chills, chest pain, shortness of breath or difficulty breathing. previous surgical abdominal history of cholecystectomy - Related Data Home Medications Medication Instructions Recorded Confirmed Cetirizine HCl [Zyrtec] 10 mg PO DAILY 03/07/18 02/20/24 Omeprazole 20 mg PO DAILY 10/11/20 02/20/24 Allergies Allergy/AdvReac Type Severity Reaction Status Date / Time amoxicillin Allergy Rash/Hives Verified 02/20/24 14:21 Penicillins Allergy Rash/Hives Verified 02/20/24 14:21 adhesive tape AdvReac red bumps Verified 02/20/24 14:21 on skin Review of Systems ROS Statement: Those systems with pertinent positive or pertinent negative responses have been documented in the HPI. ROS Other: All systems not noted in ROS Statement are negative. Past Medical History Past Medical History: GERD/Reflux, Syncope Additional Past Medical History / Comment(s): migraines, has been passing out on & off since October, has worn heart monitor on & off, will be wearing another one when comes in Thurs., seasonal allergies, possible carpal tunnel, born w/tort icollis, see DR Hinojosa H & P History of Any Multi-Drug Resistant Organisms: None Reported Past Surgical History: Cholecystectomy, Ear Surgery Additional Past Surgical History / Comment(s): myringotomy & tubes as a child Past Anesthesia/Blood Transfusion Reactions: No Reported Reaction Past Psychological History: Anxiety, Depression Smoking Status: Former smoker, Vaper Past Alcohol Use History: None Reported Past Drug Use History: None Reported - Past Family History Mother Family Medical History: Cancer General Exam Limitations: no limitations General appearance: alert, in no apparent distress Eye exam: Present: normal appearance, PERRL, EOMI. Absent: scleral icterus, conjunctival injection, periorbital swelling ENT exam: Present: normal exam, mucous membranes moist Respiratory exam: Present: normal lung sounds bilaterally. Absent: respiratory distress, wheezes, rales, rhonchi, stridor Cardiovascular Exam: Present: regular rate, normal rhythm, normal heart sounds. Absent: systolic murmur, diastolic murmur, rubs, gallop, clicks GI/Abdominal exam: Present: soft, tenderness (LLQ/left pelvic with palpation, mild rebound tenderness), normal bowel sounds. Absent: distended, guarding, rebound, rigid Extremities exam: Present: normal inspection, full ROM, normal capillary refill. Absent: tenderness, pedal edema, joint swelling, calf tenderness Back exam: Present: normal inspection, tenderness (left lumbar back with palpation) Neurological exam: Present: alert, oriented X3, CN II-XII intact Skin exam: Present: warm, dry, intact, normal color. Absent: rash Course Vital Signs 02/20/24 02/20/24 02/20/24 11:13 11:15 13:25 Pulse Rate 97 74 Respiratory 20 16 Rate Blood Pressure 110/80 112/70 O2 Sat by Pulse 100 100 Oximetry Medical Decision Making - Medical Decision Making Was pt. sent in by a medical professional or institution ([facility], CENTRIFUGAL OPERATOR, urgent care, hospital, or senior care...) When possible be specific @ -No Did you speak to anyone other than the patient for history (EMS, parent, family, police, friend...)? What history was obtained from this source @ -No Did you review nursing and triage notes (agree or disagree)? Why? @ -I reviewed and agree with nursing and triage notes Were old charts reviewed (outside hosp., previous admission, EMS record, old EKG, old radiological studies, urgent care reports/EKG's, senior care records)? Report findings @ -No old charts were reviewed Differential Diagnosis (chest pain, altered mental status, abdominal pain women, abdominal pain men, vaginal bleeding, weakness, fever, dyspnea, syncope, headache, dizziness, GI bleed, back pain, seizure, CVA, palpatations, mental health, musculoskeletal)? @ -Differential Abdominal Pain Women: Appendicitis, Cholecystitis, diverticulosis, ischemic bowel, pancreatitis, hepatitis, UTI, gastroenteritis, AAA, incarcerated hernia, bowel obstruction, constipation, inflammatory bowel, hepatitis, peptic ulcer disease, splenic infarction, perforated viscus, vulvitis, ovarian torsion, PID, kidney stone, placenta abruption, this is not meant to be an all-inclusive list EKG interpreted by me (3pts min.). @ -None X-rays interpreted by me (1pt min.). @ -None done CT interpreted by me (1pt min.). @ -None done U/S interpreted by me (1pt. min.). @ - ultrasound reveals ectopic left adnexal region with complex fluid within the cul-de-sac, ruptured ectopic considered What testing was considered but not performed or refused? (CT, X-rays, U/S, labs)? Why? @ -None What meds were considered but not given or refused? Why? @ -None Did you discuss the management of the patient with other professionals (professionals i.e. , PA, CENTRIFUGAL OPERATOR, lab, RT, psych nurse, social science manager, surgical supply assistant, teacher, community service officer, watch caser)? Give summary @ -i spoke with on-call mobile application developer Dr. Zimmerman in regard to the patient's ultrasound findings concerning for ectopic . patient will be admitted to Dr. Reyes for emergent surgery. Was smoking cessation discussed for >3mins.? @ -No Was critical care preformed (if so, how long)? @ -No Were there social determinants of health that impacted care today? How? (Homelessness, low income, unemployed, alcoholism, drug addiction, transportation, low edu. Level, literacy, decrease access to med. care, fci, rehab)? @ -No Was there de-escalation of care discussed even if they declined (Discuss DNR or withdrawal of care, Hospice)? DNR status @ -No What co-morbidities impacted this encounter? (DM, HTN, Smoking, COPD, CAD, Cancer, CVA, ARF, Chemo, Hep., AIDS, mental health diagnosis, sleep apnea, morbid obesity)? @ -None Was patient admitted / discharged? Hospital course, mention meds given and route, prescriptions, significant lab abnormalities, going to OR and other pertinent info. @ -Admitted. 28-year-old female with left lower pelvic and abdominal pain. On my evaluation patient is noted to be clenching the left side of her abdomen. Her vital signs are stable. She is noted to have tenderness to palpation of the left lower abdomen/pelvic with radiation to the mid back. Patient will be symptomatically treated with Tylenol pending laboratory results and ultrasound imaging. She is in agreement this plan. Labs remarkable for leukocytosis of 14.4 and elevated neutrophils [place] 12.0[place] [address].1. patient is provided with additional dose of pain medication. Will be admitted to [facility] for emergent surgery with concern for ruptured ectopic . Discussed with Dr. Collazo Undiagnosed new problem with uncertain prognosis? @ -No Drug Therapy requiring intensive monitoring for toxicity (Heparin, Nitro, Insulin, Cardizem)? @ -No Were any procedures done? @ -No Diagnosis/symptom? @ -ruptured ectopic Acute, or Chronic, or Acute on Chronic? @ -Acute Uncomplicated (without systemic symptoms) or Complicated (systemic symptoms)? @ -Complicated Side effects of treatment? @ -No Exacerbation, Progression, or Severe Exacerbation? @ -No Poses a threat to life or bodily function? How? (Chest pain, USA, NV, pneumonia, PE, COPD, DKA, ARF, appy, cholecystitis, CVA, Diverticulitis, Homicidal, Suicidal, threat to staff... and all critical care pts) @ -No - Lab Data Result diagrams: 02/20/24 11:44 02/20/24 11:44 Lab Results 02/20/24 02/20/24 02/20/24 Range/Units 11:44 11:44 14:24 WBC 14.4 H (3.8-10.6) k/uL RBC 4.00 (3.80-5.40) m/uL Hgb 12.8 (11.4-16.0) gm/dL Hct 38.0 (34.0-46.0) % MCV 95.0 (80.0-100.0) fL MCH 31.9 (25.0-35.0) pg MCHC 33.6 (31.0-37.0) g/dL RDW 12.8 (11.5-15.5) % Plt Count 263 (150-450) k/uL MPV 8.2 Neutrophils % 83 % Lymphocytes % 12 % Monocytes % 3 % Eosinophils % 1 % Basophils % 0 % Neutrophils # 12.0 H (1.3-7.7) k/uL Lymphocytes # 1.8 (1.0-4.8) k/uL Monocytes # 0.4 (0-1.0) k/uL Eosinophils # 0.2 (0-0.7) k/uL Basophils # 0.0 (0-0.2) k/uL Sodium 137 (137-145) mmol/L Potassium 3.7 (3.5-5.1) mmol/L Chloride 108 H (98-107) mmol/L Carbon Dioxide 25 (22-30) mmol/L Anion Gap 4 mmol/L BUN 12 (7-17) mg/dL Creatinine 0.62 (0.52-1.04) mg/dL Est GFR (CKD-EPI)AfAm >90 (>60 ml/min/1.73 sqM) Est GFR (CKD-EPI)NonAf >90 (>60 ml/min/1.73 sqM) Glucose 95 (74-99) mg/dL Calcium 8.7 (8.4-10.2) mg/dL Total Bilirubin 1.2 (0.2-1.3) mg/dL AST 25 (14-36) U/L ALT 28 (4-34) U/L Alkaline Phosphatase 54 (38-126) U/L Total Protein 6.9 (6.3-8.2) g/dL Albumin 4.1 (3.5-5.0) g/dL Lipase 69 (23-300) U/L HCG, Quant 42243.1 mIU/mL Blood Type AB Positive Blood Type Recheck AB Pos Bld Type Recheck Status No Spec Expiration Date 02/23/20242323 Disposition Clinical Impression: Ectopic Disposition: ADMITTED IP TO THIS [facility] Condition: Serious Decision to Admit Reason: Admit from EC Decision Date: 02/20/24
[2024-02-20] MEDS: ONDANSETRON 4 MG/2 ML VIAL IVP STA (11:39)
[2024-02-20] MEDS: ACETAMINOPHEN TAB 500 MG TAB PO STA (11:40)
[2024-02-20 11:52] LABS: Basophils % (A) 0 %; Eosinophils # (A) 0.2 k/uL (0-0.7); Eosinophils % (A) 1 %; HGB 12.8 gm/dL (11.4-16.0); Lymphocytes # (A) 1.8 k/uL (1.0-4.8); Lymphocytes % (A) 12 %; MCH 31.9 pg (25.0-35.0); MCHC 33.6 g/dL (31.0-37.0); Mean Platelet Volume 8.2; Monocytes # (A) 0.4 k/uL (0-1.0); Monocytes % (A) 3 %; Neutrophils % (A) 83 %; Platelet Count 263 k/uL (150-450); RDW 12.8 % (11.5-15.5); WBC 14.4 k/uL (3.8-10.6)
[2024-02-20 12:07] LABS: ALT 28 U/L (4-34); AST 25 U/L (14-36); African American GFR (CKD) >90 (>60 ml/min/1.73 sqM); Albumin 4.1 g/dL (3.5-5.0); Alkaline Phosphatase 54 U/L (38-126); Anion Gap 4 mmol/L; Blood Urea Nitrogen 12 mg/dL (7-17); Calcium 8.7 mg/dL (8.4-10.2); Carbon Dioxide 25 mmol/L (22-30); Chloride 108 mmol/L (98-107); Glucose 95 mg/dL (74-99); Lipase 69 U/L (23-300); Non-African American GFR(CKD) >90 (>60 ml/min/1.73 sqM); Potassium 3.7 mmol/L (3.5-5.1); Sodium 137 mmol/L (137-145); Total Bilirubin 1.2 mg/dL (0.2-1.3); Total Protein 6.9 g/dL (6.3-8.2)
[2024-02-20 12:54] LABS: HCG,Quantitative Serum 20726.1 mIU/mL
--- NOTE | 2024-02-20 12:59 | US ---
EXAMINATION TYPE: Transabdominal DATE OF EXAM: 02/20/2024 12:48 PM COMPARISON: NONE CLINICAL INDICATION: Female, 28 years old with history of left lower pelvic pain, + preg test; TECHNIQUE: with grayscale and color Doppler imaging including first trimester . FINDINGS: EXAM MEASUREMENTS: GESTATIONAL AGE / DATING Physician Established: Not yet established ( weeks/ days) EDC: Dates by LMP: (3 weeks/3 days) EDC: 11/02/2024 Dates by First Scan: No previous this is first scan ( weeks/ days) EDC: Dates by Current Scan for: Unable to date by today's study ( weeks/ days) EDC: MATERNAL ANATOMY Uterus: 8.8 x 4.6 x 5.4 cm Right Ovary: 2.4 x 1.5 x 3.0 cm Left Ovary: 3.7 x 2.0 x 2.4 cm Post CDS / Adnexa: Yes Presence of free fluid: Yes Presence of corpus luteal cyst: No Presence of subchorionic bleed: Yes GESTATION / SURVEY Ectopic seen on left ovary - too small to see heart flicker, measuring about 5 weeks and 6 days Date of LMP: 01/27/2024 Beta HcG (if available): Not available at this time IMPRESSION: 1. Ectopic left adnexal region this may be too early for heart motion 2. Complex fluid within the cul-de-sac. Ruptured ectopic could be considered. ER was notified of the results time of imaging [facility], , 02/20/2024 12:57 PM
[2024-02-20] MEDS: MORPHINE SULFATE 4 MG/ML SYRINGE IVP STA (13:26)
--- NOTE | 2024-02-20 13:42 | P.HPOB ---
History of Present Illness H&P Date: 02/20/24 Chief Complaint: Ectopic This is a 28-year-old 4 para 2-0-1-2 that presents to the emergency department with complaints of increasing left lower quadrant pain. Patient states last menstrual period was January 16, prior menstrual cycle was December 16. Patient states she did take a urinary test yesterday that was positive as she was a few days late for her cycle. Patient states nausea and vomiting began today. Patient denies vaginal bleeding. 4 para 2-0-1-2 2 prior vaginal deliveries, 1 miscarriage in June. blood type AB pos Past surgical history significant for a laparoscopic cholecystectomy done when she was a senior in high school. Review of Systems Constitutional: Denies chills, Denies fatigue, Denies fever Ears, nose, mouth and throat: Denies headache Cardiovascular: Denies leg edema Respiratory: Denies dyspnea Gastrointestinal: Reports as per HPI, Reports abdominal pain, Reports nausea, Reports vomiting Genitourinary: Reports Past Medical History Past Medical History: GERD/Reflux, Syncope Additional Past Medical History / Comment(s): migraines, has been passing out on & off since October, has worn heart monitor on & off, will be wearing another one when comes in Thurs., seasonal allergies, possible carpal tunnel, born w/torticollis, see DR Hinojosa H & P History of Any Multi-Drug Resistant Organisms: None Reported Past Surgical History: Cholecystectomy, Ear Surgery Additional Past Surgical History / Comment(s): myringotomy & tubes as a child Past Anesthesia/Blood Transfusion Reactions: No Reported Reaction Past Psychological History: Anxiety, Depression Smoking Status: Former smoker, Vaper Past Alcohol Use History: None Reported Past Drug Use History: None Reported - Past Family History Mother Family Medical History: Cancer Medications and Allergies Home Medications Medication Instructions Recorded Confirmed Type Cetirizine HCl [Zyrtec] 10 mg PO DAILY 03/07/18 04/22/23 History Omeprazole 20 mg PO DAILY 10/11/20 04/22/23 History Fluticasone Nasal [place] [Flonase 2 spray EA NOSTRIL DAILY PRN 04/22/23 04/22/23 History Nasal [place]] Allergies Allergy/AdvReac Type Severity Reaction Status Date / Time amoxicillin Allergy Rash/Hives Verified 02/20/24 11:15 Penicillins Allergy Rash/Hives Verified 02/20/24 11:15 adhesive tape AdvReac red bumps Verified 02/20/24 11:15 on skin Exam Osteopathic Statement: *. No significant issues noted on an osteopathic structural exam other than those noted in the History and Physical/Consult. Vital Signs Pulse Resp BP Pulse Ox 02/20/24 13:25 74 16 112/70 100 02/20/24 11:15 110/80 02/20/24 11:13 97 20 100 Intake and Output 02/19/24 02/20/24 02/20/24 22:59 06:59 14:59 Other: Weight 81.647 kg Targeted physical exam is performed this date General Is a well-nourished well- developed female in no acute distress, breathing nonlabored, abdomen is soft but tender in the left lower quadrant. Results Result Diagrams: 02/20/24 11:44 02/20/24 11:44 Abnormal Lab Results - Last 24 Hours (Table) 02/20/24 02/20/24 Range/Units 11:44 11:44 WBC 14.4 H (3.8-10.6) k/uL Neutrophils # 12.0 H (1.3-7.7) k/uL Chloride 108 H (98-107) mmol/L Assessment and Plan (1) Ectopic Current Visit: Yes Status: Acute Code(s): O00.90 - UNSPECIFIED ECTOPIC WITHOUT INTRAUTERINE SNOMED Code(s): 87486340 Plan: 28-year-old 4 para 2-0-1-2 presenting with increasing left lower quadrant pain. Ectopic with suspected rupture and hemoperitoneum is appreciated on ultrasound. Patient is counseled on need for operative laparoscopy with left salpingectomy. Patient states she would like another IMPROVEMENT DIRECTOR take care of her as she did see me at [employer] and was unhappy. I will reach out to one of my partner and sign out care per her request. surgery is reviewed and questions answered.
[2024-02-20] MEDS: HYDROmorphone 1 MG/ML 1 ML SYRINGE IVP STA (14:14)
[2024-02-20] MEDS ORDERED: NALOXONE 0.4 MG/ML 1 ML VIAL IV PRN (14:28)
[2024-02-20] MEDS ORDERED: MORPHINE SULFATE 4 MG/ML SYRINGE IV PRN (14:28)
[2024-02-20] MEDS: IV FLUID CONTINUATION 1,000 ML IV ONE (14:33)
[2024-02-20] MEDS ORDERED: PHENYLEPHRINE-0.9% NACL SYG 1,000 MCG/10 ML SYRINGE ONE (14:54)
[2024-02-20] MEDS ORDERED: SUCCINYLCHOLINE CHLORIDE 200 MG/10 ML VIAL IV ONE (14:54)
[2024-02-20] MEDS ORDERED: ONDANSETRON 4 MG/2 ML VIAL ONE (14:54)
[2024-02-20] MEDS ORDERED: GLYCOPYRROLATE 0.2 MG/ML 2 ML VIAL ONE (14:54)
[2024-02-20] MEDS ORDERED: PROPOFOL 10 MG/ML 20 ML VIAL IV ONE (14:54)
[2024-02-20] MEDS ORDERED: ROCURONIUM 10 MG/ML (5 ML VIAL) IV ONE (14:54)
[2024-02-20] MEDS ORDERED: NEOSTIGMINE 1 MG/ML 10 ML VIAL ONE (14:54)
[2024-02-20] MEDS ORDERED: fentaNYL (PF) 50 MCG/ML 2 ML AMP ONE (14:54)
[2024-02-20] MEDS ORDERED: DEXAMETHASONE SOD PHOSPHATE 4 MG/ML 1 ML VIAL ONE (14:54)
[2024-02-20] MEDS: BUPIVACAINE (PF) 0.25% 30 ML VIAL SQ ONE ×2 (15:26→16:00)
[2024-02-20] MEDS: LACTATED RINGERS 1,000 ML IV ONE (15:46)
--- NOTE | 2024-02-20 16:11 | P.OP ---
Date of Procedure: 02/20/24 Preoperative Diagnosis: Suspected Ruptured Left Tubal Ectopic Postoperative Diagnosis: 1. Ruptured Left Tubal Ectopic 2. Hemoperitoneum Procedure(s) Performed: Laparoscopic Left Salginectomy, Removal of Ectopic , Evacuation of Hemoperitoneum Implants: None Anesthesia: SKYLARA Surgeon: Stephanie Reyes Estimated Blood Loss (ml): 5 IV fluids (ml): 900 Urine output (ml): 450 Pathology: other (left fallopian tube, ectopic ) Disposition: same day Indications for Procedure: Ms. Pavon is a 28 year old wo presented with severe left lower quadrant pain. Ectopic with suspected rupture and hemoperitoneum was diagnosed on ultrasound. Laparoscopic left salpingectomy, possible left salpinoophorectomy, possible laparotomy were recommended to the patient. Risks of bleeding, infection, and damage to surrounding structures were disussed with the patient. She understands these risks and desires to proceed with surgery. All questions are answered. Operative Findings: 600 mL in hemoperitoneum appreciated upon entry and evacuated. Ectopic visualized in the left fallopian tube. All remaining pelvic and abrominal structures are within normal limits. Description of Procedure: Patient was taken to the OR with IV fluid running and pneumatic compression stockings on both legs. General anesthesia was obtained without difficulty. The patient was placed in the dorsal lithotomy position with Marshall-type stirrups with knees bent at 30 degree angles. Examination under anesthesia revealed a normal-sized, anteverted uterus. The patient as prepared and draped. The bladder was emptied. A speculum was placed into the vagina. The anterior lip of the cervix was grasped with a single-toothed tenaculum. A uterine manipulator was introduced. A horizontal skin incision was made at the umbilical fold. The periumbilical skin was manually elevated. A 5mm trocar was inserted into the abdomen under direct laparoscopic visualization. The pneumoperitoneum was established with CO2 gas to a pressure of 15mmHg. Intraabdominal survey revealed lack of any visceral or vascular injury. The pelvic and abdominal anatomy is n oted as above. First, a suction vacuum drier tender was used to evacuate 600 mL of blood clots from the pelvis and abdomen. Two additional laparoscopic assit ports were placed in the right and left lower quadrants. A Georgette Grasper was used to lease picker the fimbriated end of the left fallopian tube. The LigaSure device was used to seal and ligate the fallopian tube sequentially to the level of the uterine cornua. The fallopian tube was then transected. The left tube containing the ectopic was placed in a specimen retrieval bag and removed through the left lower quadrant. Excellent hemostasis was noted at the end of the case. The patient tolerated the procedure well. All instruments were removed from the abdomen and vagina, and all counts were correct times two. The patient was taken to the recovery room in stable condition.the recovery room in stable condition.
[2024-02-20 16:17] VITALS: TEMP 97
[2024-02-20] MEDS: HYDROmorphone 0.5 MG/0.5 ML SYRINGE IVP PRN (16:35)
[2024-02-20 16:36] LABS: Basophils % (A) 0 %; Eosinophils # (A) 0.1 k/uL (0-0.7); Eosinophils % (A) 0 %; HCT 35.7 % (34.0-46.0); HGB 11.7 gm/dL (11.4-16.0); Lymphocytes # (A) 1.7 k/uL (1.0-4.8); Lymphocytes % (A) 15 %; MCH 31.1 pg (25.0-35.0); MCV 94.4 fL (80.0-100.0); Mean Platelet Volume 8.5; Monocytes # (A) 0.2 k/uL (0-1.0); Monocytes % (A) 2 %; Neutrophils # (A) 9.8 k/uL (1.3-7.7); Neutrophils % (A) 82 %; Platelet Count 257 k/uL (150-450); RBC 3.78 m/uL (3.80-5.40); RDW 13.1 % (11.5-15.5); WBC 11.9 k/uL (3.8-10.6)
[2024-02-20 16:59] VITALS: RESP 16
[2024-02-20 17:57] VITALS: BP 99/56; PULSE 61
== END 2024-02-20 18:08 | disposition home or self-care (01) ==
LOC: EC 10:58 → 4FBP 14:48
PROVIDERS: ADMIT Obstetrics & Gynecology; ATTEND Obstetrics & Gynecology
DX: O00.102 Left tubal pregnancy without intrauterine pregnancy (principal); K66.1 Hemoperitoneum; Z87.891 Personal history of nicotine dependence
CPT/HCPCS: 59151; 96374; 96375; 99284; 36415; 86900; 86901; 88305; 80053; 83690; 85025; 86850; 84702; 76801; J0330; J2270; J1100; J2710; J2405; J3010; J2704; J1171; J2371; J0665; J1596

== ENCOUNTER → 2024-11-03 | Outpatient (CLI) | payer OTHER ==
--- NOTE | 2024-11-03 11:14 | US ---
EXAMINATION TYPE: Transabdominal DATE OF EXAM: 11/03/2024 10:29 AM COMPARISON: NONE CLINICAL INDICATION: Female, 29 years old with history of Z33.1 STATE, INCIDENTAL; hx of ect opic & miscarriage, pt is having light spotting, last was ectopic within lt ovary, Left fal lopian tube removed due to ectopic, TECHNIQUE: Transvaginal (TV) and Transabdominal (TA) with grayscale and color Doppler imaging includi ng first trimester . FINDINGS: EXAM MEASUREMENTS: GESTATIONAL AGE / DATING Physician Established: Not yet established Dates by LMP: approx 09/17/2024 (6 weeks/5 days) EDC: 06/24/2025 Dates by First Scan: No previous this is first scan Dates by Current Scan for: No IUP seen at this time MATERNAL ANATOMY Uterus: 8.8x4.1x6..4cm Right Ovary: 4.0x2.2x1.7cm ?Multiple Complex/Anechoic areas seen within Rt ovary 1: 2.1x1.2x1.7cm 2: 1.0x1.1x1.0cm Left Ovary: Lt fallopian tube removed due to past ectopic, lt ovary not well seen ? Hypoechoic area seen, not fully confident with lt ovary seen: 3.1x1.3x1.8cm Post CDS / Adnexa: ? Complex area seen adj to Rt ovary w/ vascularity: 2.3x2.9x3.2cm Presence of free fluid: n/a Presence of corpus luteal cyst: n/a Presence of subchorionic bleed: n/a GESTATION / SURVEY CRL: n/a Gestational Sac MSD: n/a Yolk Sac (normal less than 6mm): n/a IUP: No IUP seen at this time Date of LMP: approx: 09/17/2024 Beta HcG (if available): Not available at this time Urinary bladder is sonolucent. Posterior wall is normal. IMPRESSION: 1. No retained products identified. 2. Correlate with sequential beta hCG. 3. Complex areas may be within the bilateral adnexa. Follow-up recommended. [facility], Workstation: [facility], 11/03/2024 11:11 AM
== END | disposition home or self-care (01) ==
LOC: RADUSWWP 09:46
PROVIDERS: ATTEND Internal Medicine Geriatric Medicine
DX: Z33.1 Pregnant state, incidental (principal); Z90.79 Acquired absence of other genital organ(s)
CPT/HCPCS: 76801; 76817